=== PATIENT | male | born 1945 | race Caucasian/White ===

== ENCOUNTER → 2017-01-01 | Outpatient (CLI) | payer OTHER ==
[~2017-01-01] MED LIST: CINN1CAP2 PO; IBUP-1050 PO; NAPR1TAB9 PO
[2017-01-01 13:22] LABS: ESTIMATED AVERAGE GLUCOSE 160 mg/dl; HA1C FLAG Normal (Normal)
[2017-01-01 13:39] LABS: BLOOD UREA NITROGEN 15 mg/dl (7-18); CREATININE 0.97 mg/dl (0.60-1.40); GLUCOSE 129 mg/dl (70-99)
[2017-01-01 13:40] LABS: ALT/SGPT 28 U/L (12-78); AST/SGOT 17 U/L (15-37); BUN/CREATININE RATIO 15.2 (10-20); CALCIUM 8.4 mg/dl (8.5-10.1); CARBON DIOXIDE 28 mmol/L (21-32); CHLORIDE 104 mmol/L (98-107); CHOLESTEROL 204 mg/dl (0-200); POTASSIUM 4.1 mmol/L (3.5-5.1); SODIUM 139 mmol/L (136-145); TRIGLYCERIDES 100 mg/dl (0-150); VERY LOW DENSITY LIPOPROT CALC 20 mg/dl
[2017-01-01 13:44] LABS: CHOLESTEROL/HDL RATIO 4.5; HDL CHOLESTEROL 45 mg/dl; LDL CHOLESTEROL CALCULATED 139 mg/dl
[2017-01-01 13:56] LABS: RATIO 127.7 mcg/mg (0-30.0)
== END | disposition home or self-care (01) ==
LOC: C.LABMFLN 11:36
PROVIDERS: ATTEND Internal Medicine
DX: E11.9 Type 2 diabetes mellitus without complications (principal); E78.5 Hyperlipidemia, unspecified; Z12.5 Encounter for screening for malignant neoplasm of prostate

== ENCOUNTER → 2017-05-10 | Outpatient (CLI) | payer OTHER ==
[2017-05-10 13:46] LABS: ALT/SGPT 25 U/L (12-78); BLOOD UREA NITROGEN 16 mg/dl (7-18); BUN/CREATININE RATIO 14.1 (10-20); CARBON DIOXIDE 27 mmol/L (21-32); CHLORIDE 103 mmol/L (98-107); GLUCOSE 207 mg/dl (70-99); POTASSIUM 3.8 mmol/L (3.5-5.1); SODIUM 140 mmol/L (136-145)
[2017-05-10 13:48] LABS: CALCIUM 8.7 mg/dl (8.5-10.1)
[2017-05-10 13:49] LABS: ALB/GLOB RATIO 0.8 (0.9-2); ALKALINE PHOSPHATASE 59 U/L (45-117); AST/SGOT 16 U/L (15-37)
[2017-05-10 13:56] LABS: ESTIMATED AVERAGE GLUCOSE 163 mg/dl; HA1C FLAG Normal (Normal)
== END | disposition home or self-care (01) ==
LOC: C.LABMFLN 10:08
PROVIDERS: ATTEND Internal Medicine
DX: R10.11 Right upper quadrant pain (principal); E11.9 Type 2 diabetes mellitus without complications

== ENCOUNTER → 2017-05-13 | Outpatient (CLI) | payer OTHER ==
--- NOTE | 2017-05-13 08:46 | DIAGNOSTIC IMAGING REPORT ---
ABDOMINAL ULTRASOUND COMPLETE HISTORY: R10.11 Abdominal pain, RUQ (right upper quadrant)[id number]. COMPARISON: None. FINDINGS: Pancreas: Obscured by overlying bowel gas. Liver: The liver is echogenic consistent with fatty change. A 1.9 cm septated cyst within the right hepatic lobe. Gallbladder: No gallbladder wall thickening. No gallstones. CBD: 5 mm. Kidneys: No hydronephrosis. The right kidney measures 11.5 cm. The left kidney measures 11.6 cm. A 6 mm stone within the lower pole the right kidney. Upper pole cysts within the right kidney measuring up to 1.4 cm. There are few stones within the left kidney with the largest in the lower pole measuring 9 mm. There are few simple and septated cyst within the left kidney measuring up to 1.8 cm. Spleen: Normal in size. Aorta: Visualized mid to distal aorta is in caliber. IVC: Patent. IMPRESSION: 1. Mild hepatic steatosis. 2. Normal gallbladder. No gallstones. 3. Hepatic and renal cysts. Some of these contain septations. 4. Bilateral nephrolithiasis. No hydronephrosis. Electronically signed by: Danny Bazzi M.D. 05/13/2017 8:45 AM Dictated Date/Time: 05/13/2017 8:41 AM
== END | disposition home or self-care (01) ==
LOC: C.ULTR 07:58
PROVIDERS: ATTEND Internal Medicine
DX: R10.11 Right upper quadrant pain (principal); K76.0 Fatty (change of) liver, not elsewhere classified; N20.0 Calculus of kidney; N28.1 Cyst of kidney, acquired; K76.89 Other specified diseases of liver

== ENCOUNTER 2017-05-19 19:49 | Emergency (ER) | payer OTHER ==
[~2017-05-19] VITALS: Ht 175.3 cm; Wt 85.7 kg
[2017-05-19 19:52] VITALS: TEMP 36.8; Ht 175.3 cm; Wt 85.7 kg
[2017-05-19] MEDS ORDERED: SODIUM CHLORIDE 0.9% 1000ML 1,000 ML IV STA (19:57)
[2017-05-19] MEDS ORDERED: SODIUM CHLORIDE 0.9% 1000ML 500 ML IV STA (19:57)
[2017-05-19] MEDS ORDERED: CINN1CAP2 PO (20:14)
[2017-05-19] MEDS ORDERED: IBUP-1050 PO (20:14)
[2017-05-19] MEDS ORDERED: NAPR1TAB9 PO (20:14)
--- NOTE | 2017-05-19 20:27 | EMERGENCY ROOM VISIT NOTE ---
History Report prepared by Berry: Sharif John Under the Supervision of: Dr. Deuce Hernandez M.D. First contact with patient: 19:54 Chief Complaint: KIDNEY STONE Stated Complaint: KIDNEY STONES IN BOTH KIDNEYS - PAIN SIZE LEVEL 5 History of Present Illness The patient is a 71 year old male with a history of kidney stones who presents to the Emergency Room with complaints of intermittent right flank pain for the past two months. The patient was diagnosed with kidney stones bilaterally 1 week ago. He denies fevers, cough or congestion, nausea, vomiting, or urinary symptoms. His pain was rated 8 - 9 / 10 this morning, and is currently rated 5 / 10. The patient had Ibuprofen this morning. Pain does not radiate to the testicles. The pain is typically felt at night and goes away in the morning. He came to the ED because the pain did not go away today. The patient follows up with Dr. Browning, who ordered the ultrasound of his kidneys. He is scheduled to see Dr. Neal (Urology) in 9 days. Source of History: patient Onset: two months ago Position: other (right flank) Symptom Intensity: 5/10 Timing: other (persistent) Modifying Factors (Relieving): ibuprofen Associated Symptoms: No fevers, No cough, No nausea, No vomiting, No urinary symptoms Review of Systems See HPI for pertinent positives & negatives. A total of 10 systems reviewed and were otherwise negative. Past Medical & Surgical Surgical Problems: (1) S/P herniorrhaphy Family History No pertinent family history Social History Smoking Status: Never Smoker Marital Status: Housing Status: lives with family Current/Historical Medications Scheduled Cinnamon (Cinnamon), 500 MG PO QPM Scheduled PRN Ibuprofen (Advil), 600 MG PO DAILY PRN for Pain Naproxen (Aleve), 220 MG PO DAILY PRN for Pain Allergies Coded Allergies: BEE STING (Verified Allergy, Severe, PASSED OUT, STOPED HEART, 05/19/17) Physical Exam Vital Signs Date Time Temp Pulse Resp B/P (MAP) Pulse Ox O2 Delivery O2 Flow Rate FiO2 05/19/17 22:08 84 16 142/88 97 05/19/17 19:52 36.8 63 18 158/91 97 Room Air Physical Exam GENERAL: Patient is in no acute distress. HEENT: No acute trauma, normocephalic atraumatic, mucous membranes moist, no nasal congestion, no scleral icterus. NECK: No stridor, no adenopathy, no meningismus, trachea is midline. LUNGS: Clear to auscultation bilaterally, no wheeze, no rhonchi, breath sounds equal. HEART: Without murmurs gallops or rubs, regular rate and rhythm. ABDOMEN: Soft, nontender, bowel sounds positive, no hernias, no peritonitis. BACK: There is no flank discomfort with percussion. EXTREMITIES: No cyanosis or edema, full range of motion of all the joints without pain or difficulty, no signs for acute trauma. NEUROLOGIC: Oriented x 3, no acute motor or sensory deficits, no focal weakness. SKIN: No rash, no jaundice, no diaphoresis. Medical Decision & Procedures ER Provider Diagnostic Interpretation: Radiology results as stated below per my review and radiologist interpretation: CT SCAN OF THE ABDOMEN AND PELVIS WITHOUT CONTRAST CLINICAL HISTORY: Flank pain hematuria COMPARISON STUDY: Abdominal ultrasound dated 05/13/2017 TECHNIQUE: CT scan of the abdomen and pelvis was performed from the lung bases to the proximal femurs. Images are reviewed in the axial, sagittal, and coronal planes. IV contrast was not administered for this examination. CT DOSE: 971.32 mGy.cm FINDINGS: Lower chest: There are bibasal atelectatic changes. There is mild subpleural reticulation. Liver: There is a 2 cm hypodense lesion within the right hepatic lobe, likely are presenting a cyst. Gallbladder: Contracted Spleen: Normal in size and attenuation. Pancreas: Unremarkable. Adrenal glands: There is bilateral adrenal gland thickening suggestive of hyperplasia. Kidneys: There are multiple bilateral renal calculi. There are multiple bilateral renal masses, likely represent cysts. Multiple cysts were described on the recent ultrasound study. These lesions measure up to 17 mm in diameter. No ureteral or bladder calculi are visualized. Bowel: There is extensive sigmoid diverticulosis. There is no acute diverticulitis. There is no evidence of acute appendicitis Peritoneum: There is no intraperitoneal free air or abdominal ascites. There are small fat-containing inguinal hernias. Vasculature: The abdominal aorta is normal in course and caliber. Adenopathy: None. Pelvic viscera: There is mild prominence the prostate and seminal vesicles. Skeletal structures: There are multilevel degenerative changes within the spine IMPRESSION: 1. No evidence of bowel obstruction. No evidence of free air 2. Diverticulosis. No evidence of acute diverticulitis 3. No evidence of acute appendicitis 4. Bilateral nephrolithiasis. No ureteral or bladder calculi identified Electronically signed by: Mathew Barrera M.D. 05/19/2017 8:52 PM Dictated Date/Time: 05/19/2017 8:46 PM Laboratory Results 05/19/17 20:20 Red Blood Count 4.83, Mean Corpuscular Volume 89.0, Mean Corpuscular Hemoglobin 31.9, Mean Corpuscular Hemoglobin Concent 35.8, Mean Platelet Volume 9.8, Neutrophils (%) (Auto) 53.6, Lymphocytes (%) (Auto) 31.6, Monocytes (%) (Auto) 10.8, Eosinophils (%) (Auto) 3.1, Basophils (%) (Auto) 0.6, Neutrophils # (Auto ) 4.97, Lymphocytes # (Auto) 2.94, Monocytes # (Auto) 1.00, Eosinophils # (Auto ) 0.29, Basophils # (Auto) 0.06 05/19/17 20:20 Test 05/19/17 00:00 05/19/17 20:20 Urine Color YELLOW Urine Appearance CLEAR (CLEAR) Urine pH 6.5 (4.5-7.5) Urine Specific [place] 1.018 (1.000-1.030) Urine Protein NEG (NEG) Urine Glucose (UA) NEG (NEG) Urine Ketones NEG (NEG) Urine Occult Blood NEG (NEG) Urine Nitrite NEG (NEG) Urine Bilirubin NEG (NEG) Urine Urobilinogen NEG (NEG) Urine Leukocyte Esterase NEG (NEG) White Blood Count 9.29 K/uL (4.8-10.8) Red Blood Count 4.83 M/uL (4.7-6.1) Hemoglobin 15.4 g/dL (14.0-18.0) Hematocrit 43.0 % (42-52) Mean Corpuscular Volume 89.0 fL (80-100) Mean Corpuscular Hemoglobin 31.9 pg (25-34) Mean Corpuscular Hemoglobin Concent 35.8 g/dl (32-36) Platelet Count 202 K/uL (130-400) Mean Platelet Volume 9.8 fL (7.4-10.4) Neutrophils (%) (Auto) 53.6 % Lymphocytes (%) (Auto) 31.6 % Monocytes (%) (Auto) 10.8 % Eosinophils (%) (Auto) 3.1 % Basophils (%) (Auto) 0.6 % Neutrophils # (Auto) 4.97 K/uL (1.4-6.5) Lymphocytes # (Auto) 2.94 K/uL (1.2-3.4) Monocytes # (Auto) 1.00 K/uL (0.11-0.59) Eosinophils # (Auto) 0.29 K/uL (0-0.5) Basophils # (Auto) 0.06 K/uL (0-0.2) RDW Standard Deviation 42.3 fL (36.4-46.3) RDW Coefficient of Variation 12.9 % (11.5-14.5) Immature Granulocyte % (Auto) 0.3 % Immature Granulocyte # (Auto) 0.03 K/uL (0.00-0.02) Anion Gap 6.0 mmol/L (3-11) Est Creatinine Clear Calc Drug Dose 59.5 ml/min Estimated GFR () 69.1 Estimated GFR (Non- 59.6 BUN/Creatinine Ratio 16.3 (10-20) Calcium Level 8.6 mg/dl (8.5-10.1) Total Bilirubin 0.7 mg/dl (0.2-1) Aspartate Amino Transf (AST/SGOT) 17 U/L (15-37) Alanine Aminotransferase (ALT/SGPT) 26 U/L (12-78) Alkaline Phosphatase 69 U/L (45-117) Total Protein 8.3 gm/dl (6.4-8.2) Albumin 3.8 gm/dl (3.4-5.0) Globulin 4.5 gm/dl (2.5-4.0) Albumin/Globulin Ratio 0.8 (0.9-2) Lipase 186 U/L (73-393) Chemistry Specimen Hemolysis Laboratory results reviewed by me. Medications Administered Medications (Trade) Dose Ordered Sig/Adrienne Route Start Time Stop Time Status Last Admin Dose Admin Sodium Chloride 500 ml @ 999 mls/hr Q31M STAT IV 05/19/17 19:57 05/19/17 20:27 DC 05/19/17 20:29 999 MLS/HR Sodium Chloride 1,000 ml @ 200 mls/hr Q5H STAT IV 05/19/17 19:57 05/19/17 22:42 DC 05/19/17 20:29 200 MLS/HR ED Course 1955: The patient was evaluated in room C4. A complete history and physical exam was performed. 1956: NSS 1000 ml @ 200 mls/hr, NSS 500 ml @ 999 mls/hr. 2133: Reassessed the patient and discussed the workup. He understands and agrees with the discharge instructions. The patient is ready for discharge. Medical Decision Differential diagnosis includes renal colic, pyelonephritis, cholecystitis, pancreatitis, appendicitis, diverticulitis, musculoskeletal pain, hernia. Blood pressure screening: Patient was found to have a slightly elevated blood pressure likely due to circumstances. I do not believe that the patient requires hypertension monitoring. Medication Reconciliation: I attest that I have personally reviewed the patient' s current medication list. There is no leukocytosis or concerning anemia. No significant electrolyte abnormality, kidney failure or hepatitis. There is no pancreatitis. Urinalysis does not show hematuria or infection. On exam, the patient was not febrile, he was not toxic. There was no peritonitis. Abdominal and pelvis CT does not show any ureteral stone, there is no acute infectious process. No bowel obstruction. The patient presents with right flank pain. This has been ongoing for some time. The pain does worsen he states with certain movements. The pain may truly be musculoskeletal. The patient did receive IV saline during his stay, he did not require anything for pain. He is being discharged with close outpatient follow-up. Impression Primary Impression: Right flank pain Scribe Attestation The scribe's documentation has been prepared under my direction and personally reviewed by me in its entirety. I confirm that the note above accurately reflects all work, treatment, procedures, and medical decision making performed by me. Departure Information Dispostion Home / Self-Care Referrals Brock Browning M.D. (PCP) Forms HOME CARE DOCUMENTATION FORM, IMPORTANT VISIT INFORMATION Patient Instructions My [facility] [employer] [place] Additional Instructions motrin or aleve for pain may also use tylenol heat should help see your doctor as scheduled return for fever, vomiting or uncontrolled pain testing today was ok as we discussed
[2017-05-19 20:32] LABS: BASO % 0.6 %; BASO ABS # 0.06 K/uL (0-0.2); COMPLETE YES; EOS % 3.1 %; IG% 0.3 %; LYMPH % 31.6 %; LYMPH ABS # 2.94 K/uL (1.2-3.4); MEAN CORPUSCULAR HEMOGLOBIN 31.9 pg (25-34); MEAN CORPUSCULAR HGB CONC 35.8 g/dl (32-36); MEAN PLATELET VOLUME 9.8 fL (7.4-10.4); MONO % 10.8 %; NEUT % 53.6 %; PLATELET COUNT 202 K/uL (130-400); RED BLOOD COUNT 4.83 M/uL (4.7-6.1); WHITE BLOOD COUNT 9.29 K/uL (4.8-10.8)
[2017-05-19 20:37] LABS: URINE APPEARANCE CLEAR (CLEAR); URINE BILIRUBIN NEG (NEG); URINE COLOR YELLOW; URINE NITRITE NEG (NEG); URINE PH 6.5 (4.5-7.5); URINE SPECIFIC GRAVITY 1.018 (1.000-1.030); UROBILINOGEN NEG (NEG); ZZUR CULT IF INDIC CLEAN CATCH NO
[2017-05-19 20:50] LABS: MANUAL MICROSCOPIC REQUIRED? NO; REVIEW REQ? NO
--- NOTE | 2017-05-19 20:53 | DIAGNOSTIC IMAGING REPORT ---
CT SCAN OF THE ABDOMEN AND PELVIS WITHOUT CONTRAST CLINICAL HISTORY: Flank pain hematuria COMPARISON STUDY: Abdominal ultrasound dated 05/13/2017 TECHNIQUE: CT scan of the abdomen and pelvis was performed from the lung bases to the proximal femurs. Images are reviewed in the axial, sagittal, and coronal planes. IV contrast was not administered for this examination. CT DOSE: 971.32 mGy.cm FINDINGS: Lower chest: There are bibasal atelectatic changes. There is mild subpleural reticulation. Liver: There is a 2 cm hypodense lesion within the right hepatic lobe, likely are presenting a cyst. Gallbladder: Contracted Spleen: Normal in size and attenuation. Pancreas: Unremarkable. Adrenal glands: There is bilateral adrenal gland thickening suggestive of hyperplasia. Kidneys: There are multiple bilateral renal calculi. There are multiple bilateral renal masses, likely represent cysts. Multiple cysts were described on the recent ultrasound study. These lesions measure up to 17 mm in diameter. No ureteral or bladder calculi are visualized. Bowel: There is extensive sigmoid diverticulosis. There is no acute diverticulitis. There is no evidence of acute appendicitis Peritoneum: There is no intraperitoneal free air or abdominal ascites. There are small fat-containing inguinal hernias. Vasculature: The abdominal aorta is normal in course and caliber. Adenopathy: None. Pelvic viscera: There is mild prominence the prostate and seminal vesicles. Skeletal structures: There are multilevel degenerative changes within the spine IMPRESSION: 1. No evidence of bowel obstruction. No evidence of free air 2. Diverticulosis. No evidence of acute diverticulitis 3. No evidence of acute appendicitis 4. Bilateral nephrolithiasis. No ureteral or bladder calculi identified Electronically signed by: Mathew Barrera M.D. 05/19/2017 8:52 PM Dictated Date/Time: 05/19/2017 8:46 PM
[2017-05-19 21:02] LABS: ALB/GLOB RATIO 0.8 (0.9-2); BUN/CREATININE RATIO 16.3 (10-20); CALCIUM 8.6 mg/dl (8.5-10.1); CREATININE 1.2 mg/dl (0.60-1.40); POTASSIUM 3.9 mmol/L (3.5-5.1)
[2017-05-19 22:08] VITALS: BP 142/88; PULSE 84; O2SAT 97
== END 2017-05-19 22:10 | disposition home or self-care (01) ==
LOC: C.EDB 19:50 → C.EDC 22:10
DX: N20.0 Calculus of kidney (principal); K57.30 Diverticulosis of large intestine without perforation or abscess without bleeding; R10.9 Unspecified abdominal pain

== ENCOUNTER → 2017-12-24 | Outpatient (CLI) | payer OTHER ==
[2017-12-24 14:00] LABS: ALT/SGPT 29 U/L (12-78); AST/SGOT 12 U/L (15-37); BLOOD UREA NITROGEN 17 mg/dl (7-18); CALCIUM 8.7 mg/dl (8.5-10.1); CARBON DIOXIDE 31 mmol/L (21-32); CREATININE 1.03 mg/dl (0.60-1.40); GLUCOSE 226 mg/dl (70-99); POTASSIUM 4.1 mmol/L (3.5-5.1); SODIUM 137 mmol/L (136-145)
[2017-12-24 14:02] LABS: CHOLESTEROL 194 mg/dl (0-200); LDL CHOLESTEROL CALCULATED 129 mg/dl
== END | disposition home or self-care (01) ==
LOC: C.LABMFLN 08:04
PROVIDERS: ATTEND Internal Medicine
DX: E11.9 Type 2 diabetes mellitus without complications (principal)

== ENCOUNTER 2021-12-01 14:45 | Inpatient (IN) ==
--- NOTE | 2021-12-01 16:14 | Emergency Department Note ---
Impression & Plan Pneumonia due to 2019-nCoV, Hypoxia, Acute hyponatremia, Leukopenia ED Provider Note NAME: SARA MELVIN AGE: 76 SEX: M : 1945 ARRIVES VIA: Walk-In INFORMANT: Patient ED PROVIDER(S): Ike Winston DO CHIEF COMPLAINT: Shortness of breath HPI: Patient is a 76-year-old male who is unvaccinated that presents to the ER for feeling weak which started around November 23. He admits to cough and congestion. No loss of taste or smell. He has had some intermittent fevers. He denies any shortness of breath. He does have some chest pain with coughing. No belly pain, nausea, vomiting, or diarrhea. No dysuria, urgency, or frequency. Both daughter and are sick with Covid and currently recovering. He was referred in by his PCP as on his home pulse oximeter it was in the mid 80s. ROS: See above HPI for pertinent positives & negatives. A total of 10 systems reviewed and were otherwise negative. PAST MEDICAL HISTORY:See Below PAST SURGICAL HISTORY:See Below FAMILY HISTORY:See Below SOCIAL HISTORY:See Below HOME MEDICATIONS:See Below ALLERGIES:See Below VITALS:See Below PHYSICAL EXAMINATION: GENERAL: Sitting up in bed, alert, well appearing, well nourished, no distress, non-toxic EYE EXAM: normal conjunctiva. PERRL and EOM's grossly intact. OROPHARYNX: no exudate, no erythema, lips, buccal mucosa, and tongue normal and mucous membranes are moist NECK: supple, no nuchal rigidity, no adenopathy, non-tender LUNGS: Clear to auscultation. Normal chest wall mechanics HEART: no murmurs, S1 normal and S2 normal ABDOMEN: abdomen soft, non-tender, normo-active bowel sounds, no masses, no rebound or guarding. UPPER EXTREMITIES: upper extremities are grossly normal. LOWER EXTREMITIES: No pitting edema. Calves are equal bilateral NEURO EXAM: Normal sensorium, cranial nerves II-XII grossly intact, normal speech, no gross weakness of arms, no gross weakness of legs. MEDICAL DECISION MAKING: Patient is a 76-year-old male who presents ER with upper respiratory symptoms. IV was established blood work is obtained. Labs show leukopenia 4000. No significant anemia. Mild hyponatremia 132. LFTs bilirubin and troponin was negative. Patient was Covid positive. Lipase was normal. Chest x-ray with bilateral infiltrates. He was given IV fluids and Decadron. Pulse ox dropped to 84% with minimal walking. He was discussed with hospitalist and admitted for further work-up of Covid pneumonia and hypoxia. Triage Nursing notes reviewed. Limited review of prior medical records performed Vital Signs: reviewed and remarkable for no significant abnormalities Differential diagnosis: Differential diagnoses includes but is not limited to pneumonia, bronchitis, COPD/Asthma exacerbation, pneumothorax, pulmonary embolism, congestive heart failure, acute coronary syndrome ER treatment provided: See below Diagnostics interpreted by me: ECG: Sinus rhythm rate 76 Normal axis No PVCs QTC 441 Cardiac Monitoring: An order was placed for continuous cardiac monitoring. The monitor shows a rate of 80 with sinus rhythm. Laboratory studies: As stated above and show below. Imaging studies: Portable AP upright 1 view of the chest shows bilateral infiltrates Consultation(s): Discussed the hospitalist for further evaluation Procedures: none Critical Care: None Past Med/Surg History Medical History Dyslipidemia Enlarged prostate Hypertension Kidney stones PASSED ON OWN Lumbosacral radiculopathy at L5 Type 2 diabetes mellitus Hgb A1C 6.5 on 04/21/21 Surgical History History of anesthesia reaction DISORIENTATION POST OP X 1-2 WEEKS AFTER CYSTOSCOPY SX [facility] History of cystoscopy WITH STENT History of hernia repair S/P tonsillectomy Family History Father Pancreatic malignant neoplasm Malignant Pancreatic Neoplasm Mother Dementia Diabetes Denies family history of Colon cancer Ovarian cancer Prostate cancer Myocardial infarction Breast cancer Social History (Updated 11/26/21 @ 10:06 by Fiorella Guerin RN) Smoking Status: Never smoker Second Hand Exposure: No; Hx Alcohol Use: No Hx Substance Use: No Preferred Language: Libyan Communication Ability: Effective 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 Beliefs That Will Affect Care: None marital status: Current Living Situation: Spouse and Family Current Living Situation Comment: PT LIVES WITH SPOUSE, DAUGHTER current occupational status: retired Feels Safe at Home: Yes Childhood Exposure to Second-Hand Smoke: No Dental Care, Regularly: Yes Physical Activity Frequency: Daily Seatbelt Use: always Sunscreen Use: No Assistive Devices: Denture - Upper and Glasses Allergies Allergies Allergy/AdvReac Type Severity Reaction Status Date / Time bee venom protein (honey bee) Allergy Severe PASSED Verified 12/01/21 18:16 OUT, STOPPED HEART amoxicillin Allergy Mild Unknown Verified 12/01/21 18:16 Home Meds Home Medications Medication Instructions Recorded Confirmed cholecalciferol (vitamin D3) 50 50 mcg PO QAM 09/05/21 12/01/21 mcg (2,000 unit) tablet (Vitamin D3) glimepiride 2 mg tablet 1 mg PO BID 09/05/21 12/01/21 lisinopril 2.5 mg tablet 2.5 mg PO QAM 09/05/21 12/01/21 multivitamin 1 tab PO QAM 09/05/21 12/01/21 naproxen sodium 220 mg capsule 220 mg PO BID PRN 09/05/21 12/01/21 (Aleve) tamsulosin 0.4 mg capsule 0.4 mg PO HS 09/05/21 12/01/21 ascorbic acid (vitamin C) 500 mg 500 mg PO QAM 11/26/21 12/01/21 tablet (Vitamin C) Previous Rx's Medication Instructions Recorded epinephrine 0.3 mg/0.3 mL 0.3 mg SUBCUT .COMPLEX #1 ea 05/03/20 injection, auto-injector azithromycin 250 mg tablet See Rx Instructions PO .COMPLEX #6 12/01/21 (Zithromax Z-Zeferino) tab Results & Data (ED) Vital Signs Vital Signs - 24 hr 12/01/21 15:35 12/01/21 17:32 12/01/21 17:49 Temperature 36.6 C Temperature Source Temporal Artery Scan Pulse Rate 68 78 Pulse Rate [Apical] Respiratory Rate 22 22 Respiratory Effort / Characteristics Non-Labored Spontaneous Respiratory Depth Respiratory Pattern Regular Blood Pressure 126/55 L Blood Pressure [Right Arm] Blood Pressure Mean 78 Blood Pressure Mean [Right Arm] Pulse Oximetry 93 90 Oxygen Delivery Method Room Air Room Air Room Air Sepsis Recent Fever Within 48 Hours Yes Sepsis New/Unexplained Change in Mental Status No Sepsis Action Taken by Nursing No Action Required 12/01/21 17:58 Temperature Temperature Source Pulse Rate Pulse Rate [Apical] 80 Respiratory Rate 20 Respiratory Effort / Characteristics Non-Labored Spontaneous Respiratory Depth Normal Respiratory Pattern Regular Blood Pressure Blood Pressure [Right Arm] 123/53 L Blood Pressure Mean Blood Pressure Mean [Right Arm] 76 Pulse Oximetry 91 Oxygen Delivery Method Room Air Sepsis Recent Fever Within 48 Hours Sepsis New/Unexplained Change in Mental Status Sepsis Action Taken by Nursing Laboratory Data Result diagrams: 12/01/21 16:15 12/01/21 16:15 Lab Results 12/01/21 12/01/21 12/01/21 Range/Units 16:15 16:15 16:15 WBC 4.21 L (4.8-10.8) K/uL RBC 4.63 L (4.7-6.1) M/uL Hgb 14.2 (14.0-18.0) g/dL Hct 40.8 L (42-52) % MCV 88.1 (80-100) fL MCH 30.7 (25-34) pg MCHC 34.8 (32-36) g/dL RDW Std Deviation 43.3 (36.4-46.3) fL RDW Coeff of [place] 13.4 (11.5-14.5) % Plt Count 139 (130-400) K/uL MPV 9.7 (7.4-10.4) fL Immature Gran % (Auto) 0.7 % Neut % (Auto) 61.3 % Lymph % (Auto) 21.6 % [place] % (Auto) 15.7 % Eos % (Auto) 0.2 % Baso % (Auto) 0.5 % Neut # (Auto) 2.58 (1.4-6.5) K/uL Lymph # (Auto) 0.91 L (1.2-3.4) K/uL [place] # (Auto) 0.66 H (0.11-0.59) K/uL Eos # (Auto) 0.01 (0-0.5) K/uL Baso # (Auto) 0.02 (0-0.2) K/uL Immature Gran # (Auto) 0.03 H (0.00-0.02) K/uL RBC Morphology Unremarkable Sodium 132 L (136-145) mmol/L Potassium 3.7 (3.5-5.1) mmol/L Chloride 100 (98-107) mmol/L Carbon Dioxide 27 (21-32) mmol/L Anion Gap 5.0 (3-11) BUN 14 (7-18) mg/dl Creatinine 1.02 (0.6-1.4) mg/dl Est Cr Clr Drug Dosing Not Reportable Est GFR ( Amer) 81.2 ml/min Est GFR (Non-Af Amer) 70.1 ml/min BUN/Creatinine Ratio 14.0 (10-20) Glucose 148 H (70-99) mg/dl Calcium 8.5 (8.5-10.1) mg/dl Total Bilirubin 0.8 (0.2-1) mg/dl AST 69 H (15-37) U/L ALT 36 (12-78) Alkaline Phosphatase 46 (45-117) U/L Troponin I < 0.015 (0-0.045) ng/ml Total Protein 7.9 (6.4-8.2) gm/dl Albumin 3.2 L (3.4-5.0) gm/dl Globulin 4.7 H (2.5-4.0) gm/dl Albumin/Globulin Ratio 0.7 L (0.9-2) Lipase 347 (73-393) U/L SARS-CoV-2, RNA, NAAT POSITIVE A* (NEGATIVE) Administered Medications Dexamethasone 6 mg/ Syringe 1.5 mls @ 1 mls/min IV Q24H RUBIN Stop: 12/31/21 17:44 Last Admin: 12/01/21 18:06 Dose: 1 mls/min Documented by: [id number] Discontinued Medications Dexamethasone (Dexamethasone Sod Inj 4 Mg/Ml Vial) Confirm Administered Dose 8 mg .ROUTE .STK-MED ONE Stop: 12/01/21 18:06 Last Admin: 12/01/21 18:06 Dose: Not Given Documented by: [id number] Sodium Chloride (Nss 1000ml) 500 mls @ 999 mls/hr IV .Q31M ONE Stop: 12/01/21 18:05 Last Infusion: 12/01/21 18:53 Dose: 0 mls/hr Documented by: [id number] Admin: 12/01/21 18:03 Dose: 999 mls/hr Documented by: [id number] Remdesivir 200 mg/ Sodium (Chloride) 250 mls @ 125 mls/hr IV ONE STA; Protocol Stop: 12/01/21 21:55 Last Admin: 12/01/21 21:51 Dose: 125 mls/hr Documented by: [id number] Imaging Data Radiologist's Impression: Chest X-Ray 12/01/21 16:10 SINGLE VIEW CHEST CLINICAL HISTORY: Cough and dyspnea. Atypical chest pain FINDINGS: An AP, portable, upright chest radiograph is compared to study dated 09/11/2021. The heart is enlarged noting atherosclerotic calcification of the thoracic aorta. There is pulmonary vascular congestion. Diffuse airspace opacities are seen throughout both lungs. Suspect trace pleural effusions. No pneumothorax is seen. The skeletal structures are osteopenic. The bony thorax is grossly intact. IMPRESSION: 1. Cardiomegaly with pulmonary vascular congestion. 2. Diffuse airspace opacities are seen throughout both lungs. This could represent pulmonary edema and/or an infectious/inflammatory pneumonitis. Clinical correlation will be required and radiographic follow-up to resolution is recommended. 3. Suspect small pleural effusions ACT 112: Negative or not required by law. Electronically signed by: Deuce Bailey M.D. 12/01/2021 5:01 PM Discharge Plan Visit Data Chief Complaint: Referred by Doctor Stated Complaint: FEVER, LOW O2-REFERRED BY PCP ED Provider: Ike Winston Discharge Problem: Pneumonia due to 2019-nCoV, Hypoxia, Acute hyponatremia, Leukopenia Discharge Problem: Leukopenia Qualifiers: Leukopenia type: unspecified Qualified Code(s): D72.819 - Decreased white blood cell count, unspecified
[2021-12-01 16:29] LABS: Hematocrit (blood only) 40.8 % (42-52); Hemoglobin 14.2 g/dL (14.0-18.0); Mean Corpuscular Hemoglobin 30.7 pg (25-34); Mean Corpuscular Hgb Conc 34.8 g/dL (32-36); Mean Corpuscular Volume 88.1 fL (80-100); Mean Platelet Volume 9.7 fL (7.4-10.4); Platelet Count 139 K/uL (130-400); RDW Coefficient of Variation 13.4 % (11.5-14.5); RDW Standard Deviation 43.3 fL (36.4-46.3); Red Blood Count 4.63 M/uL (4.7-6.1); White Blood Count 4.21 K/uL (4.8-10.8)
[2021-12-01 16:47] LABS: Alanine Aminotransferase 36 (12-78); Albumin Level 3.2 gm/dl (3.4-5.0); Aspartate Aminotransferase 69 U/L (15-37); Blood Urea Nitrogen 14 mg/dl (7-18); Calcium 8.5 mg/dl (8.5-10.1); Carbon Dioxide 27 mmol/L (21-32); Chloride 100 mmol/L (98-107); Est GFR (African American) 81.2 ml/min; Est GFR (Non-African American) 70.1 ml/min; Glucose 148 mg/dl (70-99); Lipase 347 U/L (73-393); Potassium 3.7 mmol/L (3.5-5.1); Sodium 132 mmol/L (136-145)
[2021-12-01 16:52] LABS: Albumin Globulin Ratio 0.7 (0.9-2); Alkaline Phosphatase 46 U/L (45-117); Bilirubin,Total 0.8 mg/dl (0.2-1); Globulin 4.7 gm/dl (2.5-4.0); Total Protein 7.9 gm/dl (6.4-8.2); Troponin I < 0.015 ng/ml (0-0.045)
[2021-12-01 16:55] LABS: Basophils # (auto) 0.02 K/uL (0-0.2); Basophils % (auto) 0.5 %; Eosinophils # (auto) 0.01 K/uL (0-0.5); Eosinophils % (auto) 0.2 %; Immature Granulocytes # (auto) 0.03 K/uL (0.00-0.02); Immature Granulocytes % (auto) 0.7 %; Lymphocytes # (auto) 0.91 K/uL (1.2-3.4); Lymphocytes % (auto) 21.6 %; Monocytes # (auto) 0.66 K/uL (0.11-0.59); Monocytes % (auto) 15.7 %; Neutrophils # (auto) 2.58 K/uL (1.4-6.5); Neutrophils % (auto) 61.3 %; RBC Morphology Unremarkable
--- NOTE | 2021-12-01 17:02 | XRay Report ---
SINGLE VIEW CHEST CLINICAL HISTORY: Cough and dyspnea. Atypical chest pain FINDINGS: An AP, portable, upright chest radiograph is compared to study dated 09/11/2021. The heart is enlarged noting atherosclerotic calcification of the thoracic aorta. There is pulmonary vascular c ongestion. Diffuse airspace opacities are seen throughout both lungs. Suspect trace pleural effusions . No pneumothorax is seen. The skeletal structures are osteopenic. The bony thorax is grossly intact. IMPRESSION: 1. Cardiomegaly with pulmonary vascular congestion. 2. Diffuse airspace opacities are seen throughout both lungs. This could represent pulmonary edema an d/or an infectious/inflammatory pneumonitis. Clinical correlation will be required and radiographic f ollow-up to resolution is recommended. 3. Suspect small pleural effusions ACT 112: Negative or not required by law. Electronically signed by: Deuce Bailey M.D. 12/01/2021 5:01 PM
[2021-12-01] MEDS ORDERED: SODIUM CHLORIDE 0.9% 1000ML 500 ML IV ONE (17:35)
[2021-12-01] MEDS ORDERED: dexAMETHasone 6 MG in SYRINGE 0 ML IV SCH (17:45)
[2021-12-01] MEDS ORDERED: DEXAMETHASONE SOD INJ 4 MG/ML VIAL ONE (18:05)
[2021-12-01] MEDS ORDERED: REMDESIVIR 200 MG in SODIUM CHLORIDE 0.9% 210 ML IV STA (19:56)
--- NOTE | 2021-12-01 19:56 | History & Physical Report ---
Date of Service December 01, 2021 Assessment & Plan (1) Pneumonia due to 2019-nCoV: Plan: 76yo male with history of DM, GERD presenting with Covid-19 PNA and hypoxia. Patient is unvaccinated against Covid. He is on day 8 of illness. Labs are significant for lymphopenia with leukopenia as well as mild hyponatremia with Sw=236. Elevated inflammatory markers to include CRP of 9.05 as well as Ferritin of 1498.3. Procalcitonin is negative and BNP is within normal range. CXR is significant for bilateral airspace opacities. Patient presently saturating well on 2L NC with no respiratory distress. -Admit to medical -Maintain isolation precautions -Dexamethasone 6mg IV daily -Remdesivir 200mg IV x 1 then 100mg IV daily x 4 days -Lovenox 40mg BID -Continue home Vitamin D supplementation -Supplemental O2 as needed -Tylenol as needed for fever (2) Type 2 diabetes mellitus: Plan: Patient with well controlled Type II DM, last HgbA1C from 11/17/21 = 6.4. Blood sugar presently 148. Patient with microalbuminuria. -Hold Glimepiride -Lantus 5u BID with ISS, goal blood sugar 100 - 140 -Continue Lisinopril 2.5mg po daily (3) BPH w urinary obs/LUTS: Plan: Chronic. Patient urinating without difficulty -Continue Flomax 0.4mg po daily Plan: F/E/N - Heplock. Mildly low PO4 at 2.4, NeutraPhos supplementation x 1 day, CC diet as tolerated Ppx - Lovenox 40 BID Code - DNR/DNI per discussion with patient Dispo - Admit to medical History of Present Illness Chief Complaint: Covid-19 Primary Care Provider: Brock Browning MD Genaro Sparrow is a 76yo male with history of HTN, DM and renal stones presenting with Covid-19, ambulatory hypoxemia. Patient reports becoming ill on November 23 with profound weakness and fatigue. He also reports episodes of confusion - having difficulty balancing his checkbook and some forgetfulness around the home. He has had some mild cough and congestion as well as intermittent fevers. He had some mild diarrhea. Patient denies SOB, chest discomfort, although he does have some chest pain associated with coughing. No additional complaints at this time. Patient is not vaccinated against Covid-19. His daughter and are presently ill with Covid as well. Patient has been monitoring his pulse ox at home and has been in the 80's. In the ER his saturations were 90% on room air and decreased to low 80's with ambulation. He is presently on 2L by [place] and saturating 95% No additional complaints at this time. ER Course: Dexamethasone 6mg IV, NSS x 500mL, Remdesivir 200mg Allergies Allergy/AdvReac Type Severity Reaction Status Date / Time bee venom protein (honey bee) Allergy Severe PASSED Verified 12/01/21 18:16 OUT, STOPPED HEART amoxicillin Allergy Mild Unknown Verified 12/01/21 18:16 Home Medications Medication Instructions Recorded Confirmed Type epinephrine 0.3 mg/0.3 mL 0.3 mg SUBCUT .COMPLEX #1 ea 05/03/20 12/01/21 Rx injection, auto-injector cholecalciferol (vitamin D3) 50 50 mcg PO QAM 09/05/21 12/01/21 History mcg (2,000 unit) tablet (Vitamin D3) glimepiride 2 mg tablet 1 mg PO BID 09/05/21 12/01/21 History lisinopril 2.5 mg tablet 2.5 mg PO QAM 09/05/21 12/01/21 History multivitamin 1 tab PO QAM 09/05/21 12/01/21 History naproxen sodium 220 mg capsule 220 mg PO BID PRN 09/05/21 12/01/21 History (Aleve) tamsulosin 0.4 mg capsule 0.4 mg PO HS 09/05/21 12/01/21 History ascorbic acid (vitamin C) 500 mg 500 mg PO QAM 11/26/21 12/01/21 History tablet (Vitamin C) azithromycin 250 mg tablet See Rx Instructions PO .COMPLEX #6 12/01/21 12/01/21 Rx (Zithromax Z-Zeferino) tab Past Med/Surg History Medical History Dyslipidemia Enlarged prostate Hypertension Kidney stones PASSED ON OWN Lumbosacral radiculopathy at L5 Type 2 diabetes mellitus Hgb A1C 6.5 on 04/21/21 Surgical History History of anesthesia reaction DISORIENTATION POST OP X 1-2 WEEKS AFTER CYSTOSCOPY SX [facility] History of cystoscopy WITH STENT History of hernia repair S/P tonsillectomy Family History Father Pancreatic malignant neoplasm Malignant Pancreatic Neoplasm Mother Dementia Diabetes Denies family history of Colon cancer Ovarian cancer Prostate cancer Myocardial infarction Breast cancer Social History (Updated 11/26/21 @ 10:06 by Fiorella Guerin RN) Smoking Status: Never smoker Second Hand Exposure: No; Hx Alcohol Use: No Hx Substance Use: No Preferred Language: Kosovan Communication Ability: Effective Computer Analyst Required: No Beliefs That Will Affect Care: None marital status: Current Living Situation: Spouse and Family Current Living Situation Comment: PT LIVES WITH SPOUSE, DAUGHTER current occupational status: retired Feels Safe at Home: Yes Childhood Exposure to Second-Hand Smoke: No Dental Care, Regularly: Yes Physical Activity Frequency: Daily Seatbelt Use: always Sunscreen Use: No Assistive Devices: Denture - Upper and Glasses Review of Systems Review of Systems: All systems reviewed & are unremarkable except as noted in HPI & below Physical Exam Physical Exam: General: patient resting comfortably, NAD, non-toxic in appearance, AA&O x 4 Skin: warm, dry, intact, no rashes or lesions HEENT: NC/AT, PERRL, EOMI, anicteric sclera, conjunctiva without injection, external ear normal to inspection and nontender, nares patent, moist mucus membranes, dentition intact, no oropharyngeal lesions, neck supple, trachea midline, no LAD, no thyromegaly, no JVD Heart: +S1/S2, regular, no m/r/g Lungs: equal air entry bilaterally, no rales/rhonchi/wheezes Abd: +BS, soft, NT/ND, no masses/organomegaly/ascites Ext: warm, 2+ pulses in UE/LE bilaterally, no clubbing/cyanosis or edema Neuro: nonfocal, patient AA&O x 4, speech intact, no facial droop, moving all extremities on command with equal strength 5/5 Results & Data Results & Data ([facility]) Vital Signs (Past 12 Hours) Vital Signs Temp Pulse Pulse Resp BP BP Pulse Ox 12/01/21 17:58 80 20 123/53 L 91 12/01/21 17:49 78 22 90 12/01/21 15:35 36.6 C 68 22 126/55 L 93 Laboratory Results Laboratory Results WBC 4.21 K/uL (4.8-10.8) L 12/01/21 16:15 RBC 4.63 M/uL (4.7-6.1) L 12/01/21 16:15 Hgb 14.2 g/dL (14.0-18.0) 12/01/21 16:15 Hct 40.8 % (42-52) L 12/01/21 16:15 MCV 88.1 fL (80-100) 12/01/21 16:15 MCH 30.7 pg (25-34) 12/01/21 16:15 MCHC 34.8 g/dL (32-36) 12/01/21 16:15 RDW Std Deviation 43.3 fL (36.4-46.3) 12/01/21 16:15 RDW Coeff of Oliva 13.4 % (11.5-14.5) 12/01/21 16:15 Plt Count 139 K/uL (130-400) 12/01/21 16:15 MPV 9.7 fL (7.4-10.4) 12/01/21 16:15 Immature Gran % (Auto) 0.7 % 12/01/21 16:15 Neut % (Auto) 61.3 % 12/01/21 16:15 Lymph % (Auto) 21.6 % 12/01/21 16:15 [place] % (Auto) 15.7 % 12/01/21 16:15 Eos % (Auto) 0.2 % 12/01/21 16:15 Baso % (Auto) 0.5 % 12/01/21 16:15 Neut # (Auto) 2.58 K/uL (1.4-6.5) 12/01/21 16:15 Lymph # (Auto) 0.91 K/uL (1.2-3.4) L 12/01/21 16:15 [place] # (Auto) 0.66 K/uL (0.11-0.59) H 12/01/21 16:15 Eos # (Auto) 0.01 K/uL (0-0.5) 12/01/21 16:15 Baso # (Auto) 0.02 K/uL (0-0.2) 12/01/21 16:15 Immature Gran # (Auto) 0.03 K/uL (0.00-0.02) H 12/01/21 16:15 RBC Morphology Unremarkable 12/01/21 16:15 Sodium 132 mmol/L (136-145) L 12/01/21 16:15 Potassium 3.7 mmol/L (3.5-5.1) 12/01/21 16:15 Chloride 100 mmol/L (98-107) 12/01/21 16:15 Carbon Dioxide 27 mmol/L (21-32) 12/01/21 16:15 Anion Gap 5.0 (3-11) 12/01/21 16:15 BUN 14 mg/dl (7-18) 12/01/21 16:15 Creatinine 1.02 mg/dl (0.6-1.4) 12/01/21 16:15 Est Cr Clr Drug Dosing Not Reportable 12/01/21 16:15 Est GFR ( Amer) 81.2 ml/min 12/01/21 16:15 Est GFR (Non-Af Amer) 70.1 ml/min 12/01/21 16:15 BUN/Creatinine Ratio 14.0 (10-20) 12/01/21 16:15 Glucose 148 mg/dl (70-99) H 12/01/21 16:15 Calcium 8.5 mg/dl (8.5-10.1) 12/01/21 16:15 Total Bilirubin 0.8 mg/dl (0.2-1) 12/01/21 16:15 AST 69 U/L (15-37) H 12/01/21 16:15 ALT 36 (12-78) 12/01/21 16:15 Alkaline Phosphatase 46 U/L (45-117) 12/01/21 16:15 Troponin I < 0.015 ng/ml (0-0.045) 12/01/21 16:15 Total Protein 7.9 gm/dl (6.4-8.2) 12/01/21 16:15 Albumin 3.2 gm/dl (3.4-5.0) L 12/01/21 16:15 Globulin 4.7 gm/dl (2.5-4.0) H 12/01/21 16:15 Albumin/Globulin Ratio 0.7 (0.9-2) L 12/01/21 16:15 Lipase 347 U/L (73-393) 12/01/21 16:15 SARS-CoV-2, RNA, NAAT POSITIVE (NEGATIVE) A* 12/01/21 16:15 Impressions Chest X-Ray 12/01/21 16:10 SINGLE VIEW CHEST CLINICAL HISTORY: Cough and dyspnea. Atypical chest pain FINDINGS: An AP, portable, upright chest radiograph is compared to study dated 09/11/2021. The heart is enlarged noting atherosclerotic calcification of the thoracic aorta. There is pulmonary vascular congestion. Diffuse airspace opacities are seen throughout both lungs. Suspect trace pleural effusions. No pneumothorax is seen. The skeletal structures are osteopenic. The bony thorax is grossly intact. IMPRESSION: 1. Cardiomegaly with pulmonary vascular congestion. 2. Diffuse airspace opacities are seen throughout both lungs. This could r epresent pulmonary edema and/or an infectious/inflammatory pneumonitis. Clinical correlation will be required and radiographic follow-up to resolution is recommended. 3. Suspect small pleural effusions ACT 112: Negative or not required by law. Electronically signed by: Deuce Bailey M.D. 12/01/2021 5:01 PM ECG Additional Comments: By my interpretation EKG with NSR at 76, normal axis, TG=090, QRS=94, MJg=569, no acute ischemic changes Code Status & VTE Plan VTE Prophylaxis Plan VTE Prophylaxis will be ordered: Yes PG Care Time/CCT Total # of Minutes Spent Total Time Spent with Patient: Total time spent is greater than 50% in coordination of care (as documented) at patient's floor/unit and/or counseling patient: Coding Level of Care Code 60677 Initial Inpt Care Lvl 2 Diagnoses Pneumonia due to 2019-nCoV U07.1; J12.82 Type 2 diabetes mellitus E11.9 BPH w urinary obs/LUTS N40.1; N13.8
[2021-12-01] MEDS ORDERED: GLUCAGON FOR INJ 1 MG VIAL SQ PRN (22:34)
[2021-12-01] MEDS ORDERED: GLUCOSE 40% GEL 15 GM TUBE PO PRN (22:34)
[2021-12-01] MEDS ORDERED: DEXTROSE 50% 50 ML SYRINGE IV PRN (22:34)
[2021-12-01] MEDS ORDERED: CARBOHYDRATES FOR HYPOGLYCEMIA PO PRN (22:34)
[2021-12-01] MEDS ORDERED: GLUCOSE 10 TABS/TUBE PO PRN (22:34)
[2021-12-01] MEDS ORDERED: PATIENT'S HEIGHT AND/OR WEIGHT NEEDED SCH (22:45)
[2021-12-01 23:26] LABS: C Reactive Protein 9.05 mg/dl (0-0.29); Ferritin 1498.3 ng/ml (8-388); Magnesium 2.1 mg/dl (1.8-2.4); NT Pro B Type Natriuretic Pept 195 pg/ml (0-1800); Phosphorus 2.4 mg/dl (2.5-4.9)
[2021-12-01] MEDS: INSULIN GLARGINE SOLOSTAR 100 UNITS/ML 3 ML PEN SC SCH (23:35)
[2021-12-01] MEDS: INSULIN ASPART PER UNIT SC SCH (23:35)
[2021-12-02] MEDS: TAMSULOSIN HCL 0.4 MG CAP PO SCH ×2 (00:14→20:04)
[2021-12-02] MEDS: SODIUM CHLORIDE 0.9% 10ML FLUSH IV SCH ×2 (00:16→21:08)
[2021-12-02] MEDS: ENOXAPARIN INJ 40 MG/0.4 ML SYR SQ SCH ×3 (01:06→20:04)
[2021-12-02 05:44] LABS: Hematocrit (blood only) 38.6 % (42-52); Hemoglobin 13.3 g/dL (14.0-18.0); Immature Granulocytes # (auto) 0.03 K/uL (0.00-0.02); Immature Granulocytes % (auto) 0.8 %; Lymphocytes # (auto) 0.73 K/uL (1.2-3.4); Lymphocytes % (auto) 19.4 %; Mean Corpuscular Hemoglobin 30.4 pg (25-34); Mean Corpuscular Hgb Conc 34.5 g/dL (32-36); Mean Corpuscular Volume 88.1 fL (80-100); Monocytes % (auto) 18.6 %; Neutrophils % (auto) 61.2 %; Platelet Count 163 K/uL (130-400); RDW Coefficient of Variation 13.4 % (11.5-14.5); RDW Standard Deviation 42.9 fL (36.4-46.3); Red Blood Count 4.38 M/uL (4.7-6.1); White Blood Count 3.76 K/uL (4.8-10.8)
[2021-12-02 06:18] LABS: Albumin Level 2.7 gm/dl (3.4-5.0); BUN Creatinine Ratio 16.1 (10-20); Bilirubin,Total 0.6 mg/dl (0.2-1); Calcium 8.1 mg/dl (8.5-10.1); Creatinine Clr Calc Pharmacy 87.9 ml/min; Est GFR (African American) 101.3 ml/min; Est GFR (Non-African American) 87.4 ml/min
--- NOTE | 2021-12-02 08:24 | Hospitalist Progress Note ---
Date of Service December 02, 2021 Assessment & Plan (1) Pneumonia due to 2019-nCoV: Plan: 76yo male with history of DM, GERD presenting with Covid-19 PNA and hypoxia. Patient is unvaccinated against Covid. He is on day 8 of illness. Labs are significant for lymphopenia with leukopenia as well as mild hyponatremia with Mp=231. Elevated inflammatory markers to include CRP of 9.05 as well as Ferritin of 1498.3. Procalcitonin is negative and BNP is within normal range. CXR is significant for bilateral airspace opacities. First symptoms: ~11/23/21 First tested: in our [id number] Vaccinated: No Admission date:12/01/21 Admission O2 requirement: 2L Admission CRP:9 Dexamethasone course started: 12/01/21 Remdesivir started: 12/01/21 Tocilizumab given/baricitinib not started as not meeting criteria Tocilizumab/baricitinib contraindication: consider adding lasix if not improved Antibiotics: none -Lovenox 40mg BID (2) Type 2 diabetes mellitus: Plan: Patient with well controlled Type II DM, last HgbA1C from 11/17/21 = 6.4. Blood sugar presently 148. Patient with microalbuminuria. -Hold Glimepiride -Lantus 5u BID with ISS, goal blood sugar 100 - 140, if challenges with glucose control consider NPH daily to cover dexamethasone -Continue Lisinopril 2.5mg po daily (3) BPH w urinary obs/LUTS: Plan: Chronic. Patient urinating without difficulty -Continue Flomax 0.4mg po daily Plan: Ppx - Lovenox 40 BID Code - DNR/DNI per discussion with patient Admission and Anticipated Discharge Date Admission Date: December 01, 2021 Subjective Patient doing well says he feels better he still slightly tremulous but he was able to eat food today Review of Systems Review of Systems: Moderate distress and fatigue no headache, no visual changes no speech or swallowing issues no chest pain, pressure or palpitations Continue shortness of breath, nonproductive cough or wheezes no abdominal pain, nausea or vomiting, no diarrhea no dysuria, hematuria or frequency no focal joint pain or swelling no back pain, CVA tenderness or radicular pain no bruising, bleeding or rashes no focal signs of weakness or numbness or altered sensation no complaints of anxiety or depression.. Physical Exam Physical Exam: The patient appeared mild to moderate respiratory distress Vital signs as documented. Head exam is normocephalic atraumatic Neck is without JVD, thyromegaly, or carotid bruits. Lungs are coarse bilaterally in all lung lebron tachypnea Cardiac exam, Rhythm is regular.. No murmurs, rubs or gallops. Abdominal exam reveals normal bowel sounds, soft non tender, no masses Extremities are nonedematous and both pedal pulses are present Neurologic exam is alert and oriented, no focal loss of strength or sensation Skin is without bruises or rashes Psychologically is without concerns for anxiety or depression.. Results & Data Results & Data ([facility]) Vital Signs (Past 12 Hours) Vital Signs Temp Pulse Resp BP Pulse Ox 12/02/21 05:09 98.2 F 72 35 H 116/80 93 12/02/21 02:28 58 L 24 111/64 95 12/02/21 01:15 60 24 105/62 94 12/01/21 23:43 69 18 126/67 94 12/01/21 23:00 70 18 134/67 92 12/01/21 21:00 73 20 120/65 94 PG Care Time/CCT Total # of Minutes Spent Total Time Spent with Patient: Total time spent is greater than 50% in coordination of care (as documented) at patient's floor/unit and/or counseling patient: Coding Level of Care Code 97371 Subseq Hosp Care Lvl 3 Diagnoses Pneumonia due to 2019-nCoV U07.1; J12.82 Type 2 diabetes mellitus E11.9 BPH w urinary obs/LUTS N40.1; N13.8
[2021-12-02] MEDS: POT PHOSPHATE MONOBASIC W/ SOD TAB PO SCH ×4 (08:51→20:03)
[2021-12-02] MEDS: CHOLECALCIFEROL 1,000 UNITS 25 MCG TAB PO SCH (08:52)
[2021-12-02] MEDS: lisinopril 2.5 MG TAB PO SCH (08:52)
[2021-12-02] MEDS: dexAMETHasone 6 MG in SYRINGE 0 ML IV SCH (08:53)
[2021-12-02] MEDS: INSULIN GLARGINE SOLOSTAR 100 UNITS/ML 3 ML PEN SC SCH ×2 (08:54→20:58)
[2021-12-02] MEDS: INSULIN ASPART PER UNIT SC SCH ×5 (09:19→21:02)
--- NOTE | 2021-12-02 11:44 | Electrocardiogram Report ---
Test Reason : Blood Pressure : / mmHG Vent. Rate : 076 BPM Atrial Rate : 076 BPM P-R Int : 182 ms QRS Dur : 094 ms QT Int : 392 ms P-R-T Axes : 065 017 053 degrees QTc Int : 441 ms Normal sinus rhythm Normal ECG When compared with ECG of 11-SEP-2021 09:51, No significant change was found Confirmed by Brock Lawson ([id number]) on 12/02/2021 11:44:23 AM Referred By: Brock Pro Confirmed By:Brock Lawson
[2021-12-02] MEDS ORDERED: FUROSEMIDE INJ 20 MG/2 ML VIAL IV ONE (18:31)
[2021-12-02] MEDS: REMDESIVIR 100 MG in SODIUM CHLORIDE 0.9% 230 ML IV SCH (20:06)
[2021-12-03 05:58] LABS: Basophils # (auto) 0.01 K/uL (0-0.2); Basophils % (auto) 0.1 %; Hematocrit (blood only) 41.5 % (42-52); Hemoglobin 14.2 g/dL (14.0-18.0); Immature Granulocytes # (auto) 0.08 K/uL (0.00-0.02); Immature Granulocytes % (auto) 0.9 %; Lymphocytes # (auto) 1.43 K/uL (1.2-3.4); Lymphocytes % (auto) 16.2 %; Mean Corpuscular Hemoglobin 30.5 pg (25-34); Mean Corpuscular Hgb Conc 34.2 g/dL (32-36); Mean Corpuscular Volume 89.2 fL (80-100); Mean Platelet Volume 9.7 fL (7.4-10.4); Monocytes # (auto) 1.45 K/uL (0.11-0.59); Monocytes % (auto) 16.5 %; Neutrophils # (auto) 5.84 K/uL (1.4-6.5); Neutrophils % (auto) 66.3 %; Platelet Count 222 K/uL (130-400); RDW Coefficient of Variation 13.6 % (11.5-14.5); RDW Standard Deviation 44.8 fL (36.4-46.3); Red Blood Count 4.65 M/uL (4.7-6.1); White Blood Count 8.81 K/uL (4.8-10.8)
[2021-12-03 06:34] LABS: Albumin Level 2.8 gm/dl (3.4-5.0); BUN Creatinine Ratio 20.9 (10-20); Bilirubin Direct 0.2 mg/dl (0-0.2); Calcium 8.5 mg/dl (8.5-10.1); Creatinine Clr Calc Pharmacy 78.6 ml/min; Est GFR (African American) 96.7 ml/min; Est GFR (Non-African American) 83.5 ml/min; Potassium 3.5 mmol/L (3.5-5.1)
[2021-12-03 06:36] LABS: Bilirubin,Total 0.7 mg/dl (0.2-1); C Reactive Protein 4.94 mg/dl (0-0.29); Total Protein 7.4 gm/dl (6.4-8.2)
[2021-12-03] MEDS: lisinopril 2.5 MG TAB PO SCH (08:02)
[2021-12-03] MEDS: CHOLECALCIFEROL 1,000 UNITS 25 MCG TAB PO SCH (08:03)
[2021-12-03] MEDS: ENOXAPARIN INJ 40 MG/0.4 ML SYR SQ SCH ×2 (08:03→20:18)
[2021-12-03] MEDS: dexAMETHasone 6 MG in SYRINGE 0 ML IV SCH (08:03)
[2021-12-03] MEDS: POT PHOSPHATE MONOBASIC W/ SOD TAB PO SCH ×4 (08:03→20:19)
[2021-12-03] MEDS: INSULIN GLARGINE SOLOSTAR 100 UNITS/ML 3 ML PEN SC SCH ×2 (08:05→20:18)
[2021-12-03] MEDS: INSULIN ASPART PER UNIT SC SCH ×4 (08:06→20:18)
--- NOTE | 2021-12-03 08:37 | Hospitalist Progress Note ---
Date of Service December 03, 2021 Assessment & Plan (1) Pneumonia due to 2019-nCoV: Plan: 76yo male with history of DM, GERD presenting with Covid-19 PNA and hypoxia. Patient is unvaccinated against Covid. He is on day 8 of illness. Labs are significant for lymphopenia with leukopenia as well as mild hyponatremia with Qh=053. Elevated inflammatory markers to include CRP of 9.05 as well as Ferritin of 1498.3. Procalcitonin is negative and BNP is within normal range. CXR is significant for bilateral airspace opacities. First symptoms: ~11/23/21 First tested: in our [id number]/03/22 Vaccinated: No Admission date:12/01/21 Admission O2 requirement: 2L Current O2-4L Admission CRP:9 Dexamethasone course started: 12/01/21 Remdesivir started: 12/01/21 Tocilizumab given/baricitinib not started as not meeting criteria Tocilizumab/baricitinib contraindication: adding lasix 12/03 Antibiotics: none -Lovenox 40mg BID (2) Type 2 diabetes mellitus: Plan: Patient with well controlled Type II DM, last HgbA1C from 11/17/21 = 6.4. Blood sugar presently 148. Patient with microalbuminuria. -Hold Glimepiride -Lantus 5u BID with ISS, goal blood sugar 100 - 140, if challenges with glucose control consider NPH daily to cover dexamethasone -Continue Lisinopril 2.5mg po daily (3) BPH w urinary obs/LUTS: Plan: Chronic. Patient urinating without difficulty -Continue Flomax 0.4mg po daily Plan: Ppx - Lovenox 40 BID Code - DNR/DNI per discussion with patient Admission and Anticipated Discharge Date Admission Date: December 01, 2021 Subjective Patient doing well says he feels better less tremulous, but he was able to eat better today Review of Systems Review of Systems: Moderate distress and fatigue no headache, no visual changes no speech or swallowing issues no chest pain, pressure or palpitations Continue shortness of breath, nonproductive cough or wheezes no abdominal pain, nausea or vomiting, no diarrhea no dysuria, hematuria or frequency no focal joint pain or swelling no back pain, CVA tenderness or radicular pain no bruising, bleeding or rashes no focal signs of weakness or numbness or altered sensation no complaints of anxiety or depression.. Physical Exam Physical Exam: The patient appeared mild to moderate respiratory distress Vital signs as documented. Head exam is normocephalic atraumatic Neck is without JVD, thyromegaly, or carotid bruits. Lungs are coarse bilaterally in all lung lebron tachypnea Cardiac exam, Rhythm is regular.. No murmurs, rubs or gallops. Abdominal exam reveals normal bowel sounds, soft non tender, no masses Extremities are nonedematous and both pedal pulses are present Neurologic exam is alert and oriented, no focal loss of strength or sensation Skin is without bruises or rashes Psychologically is without concerns for anxiety or depression.. Results & Data Results & Data ([facility]) Vital Signs (Past 12 Hours) Vital Signs Temp Pulse Resp BP Pulse Ox 12/03/21 07:20 97.9 F 69 20 118/65 90 12/03/21 05:59 90 12/02/21 22:58 98.6 F 72 18 116/62 91 PG Care Time/CCT Total # of Minutes Spent Total Time Spent with Patient: Total time spent is greater than 50% in coordination of care (as documented) at patient's floor/unit and/or counseling patient: Coding Level of Care Code 63109 Subseq Hosp Care Lvl 2 Diagnoses Pneumonia due to 2019-nCoV U07.1; J12.82 Type 2 diabetes mellitus E11.9 BPH w urinary obs/LUTS N40.1; N13.8
[2021-12-03] MEDS: FUROSEMIDE 20 MG TAB PO SCH (09:47)
[2021-12-03] MEDS: TAMSULOSIN HCL 0.4 MG CAP PO SCH (20:19)
[2021-12-03] MEDS: REMDESIVIR 100 MG in SODIUM CHLORIDE 0.9% 230 ML IV SCH (21:21)
[2021-12-03] MEDS: SODIUM CHLORIDE 0.9% 10ML FLUSH IV SCH (22:27)
[2021-12-04 06:58] LABS: Basophils # (auto) 0.01 K/uL (0-0.2); Basophils % (auto) 0.1 %; Hematocrit (blood only) 40.2 % (42-52); Hemoglobin 13.8 g/dL (14.0-18.0); Immature Granulocytes # (auto) 0.12 K/uL (0.00-0.02); Immature Granulocytes % (auto) 1.5 %; Lymphocytes # (auto) 1.36 K/uL (1.2-3.4); Lymphocytes % (auto) 17.2 %; Mean Corpuscular Hemoglobin 30.4 pg (25-34); Mean Corpuscular Hgb Conc 34.3 g/dL (32-36); Mean Corpuscular Volume 88.5 fL (80-100); Mean Platelet Volume 9.7 fL (7.4-10.4); Monocytes # (auto) 1.67 K/uL (0.11-0.59); Monocytes % (auto) 21.2 %; Neutrophils # (auto) 4.73 K/uL (1.4-6.5); Platelet Count 227 K/uL (130-400); RDW Coefficient of Variation 13.4 % (11.5-14.5); RDW Standard Deviation 43.9 fL (36.4-46.3); Red Blood Count 4.54 M/uL (4.7-6.1); White Blood Count 7.89 K/uL (4.8-10.8)
[2021-12-04 07:21] LABS: Albumin Level 2.6 gm/dl (3.4-5.0); BUN Creatinine Ratio 23.7 (10-20); Bilirubin Direct 0.2 mg/dl (0-0.2); Calcium 8.4 mg/dl (8.5-10.1); Creatinine Clr Calc Pharmacy 87.9 ml/min; Est GFR (African American) 101.3 ml/min; Est GFR (Non-African American) 87.4 ml/min; Potassium 3.4 mmol/L (3.5-5.1)
[2021-12-04 07:24] LABS: Bilirubin,Total 0.7 mg/dl (0.2-1); Total Protein 6.8 gm/dl (6.4-8.2)
[2021-12-04] MEDS: dexAMETHasone 6 MG in SYRINGE 0 ML IV SCH (08:04)
[2021-12-04] MEDS: POT PHOSPHATE MONOBASIC W/ SOD TAB PO SCH ×4 (08:05→20:07)
[2021-12-04] MEDS: ENOXAPARIN INJ 40 MG/0.4 ML SYR SQ SCH ×2 (08:05→20:07)
[2021-12-04] MEDS: FUROSEMIDE 20 MG TAB PO SCH (08:07)
[2021-12-04] MEDS ORDERED: POTASSIUM CHLORIDE CRTAB 20 MEQ TABCR PO ONE (08:11)
--- NOTE | 2021-12-04 08:46 | XRay Report ---
SINGLE VIEW CHEST CLINICAL HISTORY: Hypoxia. FINDINGS: An AP, portable, upright chest radiograph is compared to study dated 12/01/2021. The heart is enlarged noting atherosclerotic calcification of the thoracic aorta. There is pulmonary vascular con gestion. Diffuse airspace opacities are again seen throughout both lungs. Suspect trace pleural effus ions. No pneumothorax is seen. The skeletal structures are osteopenic. The bony thorax is grossly int act. IMPRESSION: 1. Cardiomegaly with pulmonary vascular congestion. 2. Diffuse airspace opacities are seen throughout both lungs. This is similar to the 12/01/2021 examina tion and could represent pulmonary edema and/or an infectious/inflammatory pneumonitis. Clinical petty elation will be required and radiographic follow-up to resolution is recommended. 3. Suspect small pleural effusions ACT 112: Negative or not required by law. Electronically signed by: Deuce Bailey M.D. 12/04/2021 8:45 AM
--- NOTE | 2021-12-04 08:54 | Hospitalist Progress Note ---
Date of Service December 04, 2021 Assessment & Plan (1) Pneumonia due to 2019-nCoV: Plan: Rapidly worsening 12/04/20 First symptoms: ~11/23/21 First tested: in our system 12/01/21 Vaccinated: No Admission date:12/01/21 Admission O2 requirement: 2L Current O2- 15LPM oxymask but O2 sats 87-88%, high flow oxygen ordered Admission CRP: 9 on admission, now down to 2.74 Dexamethasone course started: 12/01/21 Remdesivir started: 12/01/21 Tocilizumab given/baricitinib not started as not meeting criteria (CRP too low) Tocilizumab/baricitinib contraindication: Started Lasix 12/03 Antibiotics: none repeat procalcitonin today again negative (2) Acute respiratory failure with hypoxia: Plan: Aim O2 sats > 90%. Transition to high flow oxygen as unable to maintain O2 sats on oxymask. CXR negative for pneumothorax CT for PE performed due to worsening hypoxia, negative for pulmonary emboli Procalcitonin negative (3) Type 2 diabetes mellitus: Plan: Patient with well controlled Type II DM, last HgbA1C from 11/17/21 = 6.4. BSG 156-213 yesterday -Hold Glimepiride -Lantus 5u BID with ISS, will add insulin NPH to cover for dexamethasone use (4) BPH w urinary obs/LUTS: Plan: Chronic. Patient urinating without difficulty -Continue Flomax 0.4mg po daily Plan: VTE Prophylaxis - Lovenox 40mg SQ BID Diet - T2DM Disposition - COVID isolation precautions, transfer to PCU Code - DNR/DNI per prior provider discussions with patient Admission and Anticipated Discharge Date Admission Date: December 01, 2021 Subjective Reports much worsening shortness of breath this morning. He had been stable on 4LPM O2 via nasal cannula but current O2 sats 88% on 15 LPM oxymask at the cur rent time. No chest pain or leg swelling. Has not had breakfast and no problems choking/coughing on food when seen. Continues with significant fatigue and reduced appetite. Review of Systems Review of Systems: All systems reviewed & are unremarkable except as noted in HPI & below Physical Exam Constitutional: WD/WN, vitals as above Eyes: + anicteric sclerae; normal pupil size ENMT: external ear and nose normal, oropharynx normal Neck: trachea midline, no thyromegaly Respiratory: + labored breathing, + retractions and + uses accessory muscles Auscultation: + crackles (fine bibasal); no diminished lung sounds Cardiovascular: RRR, no murmur, no edema Extremities: normal capillary refill; no calf tenderness and no pedal edema Gastrointestinal (Abdomen): normal bowel sounds, soft, nontender, no hepatosplenomegaly Musculoskeletal: no cyanosis or clubbing, extremities motor strength 5/5 Skin: no rashes, warm and dry Neurologic: moves all extremities and awake; not confused Psychiatric: A+Ox3, euthymic affect Results & Data Results & Data ([facility]) Vital Signs (Past 12 Hours) Vital Signs Temp Pulse Resp BP Pulse Ox 12/04/21 07:32 36.5 C 73 24 123/74 91 12/03/21 22:39 36.8 C 62 18 118/64 88 L Laboratory Results Abnormal lab results 12/03/21 12/04/21 12/04/21 Range/Units 20:08 06:20 06:20 RBC 4.54 L (4.7-6.1) M/uL Hgb 13.8 L (14.0-18.0) g/dL Hct 40.2 L (42-52) % [place] # (Auto) 1.67 H (0.11-0.59) K/uL Immature Gran # (Auto) 0.12 H (0.00-0.02) K/uL ABG pH (7.35-7.45) ABG pO2 (80-95) mmHg ABG HCO3 (19-24) mmol/L ABG O2 Saturation (90-95) % ABG Base Excess (-9-1.8) mEq/L Potassium 3.4 L (3.5-5.1) mmol/L BUN/Creatinine Ratio 23.7 H (10-20) Glucose 139 H (70-99) mg/dl POC Glucose 178 H (70-99) mg/dl Calcium 8.4 L (8.5-10.1) mg/dl AST 45 H (15-37) U/L Alkaline Phosphatase 44 L (45-117) U/L C-Reactive Protein (0-0.29) mg/dl Albumin 2.6 L (3.4-5.0) gm/dl 12/04/21 12/04/21 12/04/21 Range/Units 07:50 09:11 09:12 RBC (4.7-6.1) M/uL Hgb (14.0-18.0) g/dL Hct (42-52) % [place] # (Auto) (0.11-0.59) K/uL Immature Gran # (Auto) (0.00-0.02) K/uL ABG pH 7.51 H* (7.35-7.45) ABG pO2 47 L (80-95) mmHg ABG HCO3 28 H (19-24) mmol/L ABG O2 Saturation 83.0 L (90-95) % ABG Base Excess 5.0 H (-9-1.8) mEq/L Potassium (3.5-5.1) mmol/L BUN/Creatinine Ratio (10-20) Glucose (70-99) mg/dl POC Glucose 142 H (70-99) mg/dl Calcium (8.5-10.1) mg/dl AST (15-37) U/L Alkaline Phosphatase (45-117) U/L C-Reactive Protein 2.74 H (0-0.29) mg/dl Albumin (3.4-5.0) gm/dl 12/04/21 12/04/21 Range/Units 11:24 16:20 RBC (4.7-6.1) M/uL Hgb (14.0-18.0) g/dL Hct (42-52) % [place] # (Auto) (0.11-0.59) K/uL Immature Gran # (Auto) (0.00-0.02) K/uL ABG pH (7.35-7.45) ABG pO2 (80-95) mmHg ABG HCO3 (19-24) mmol/L ABG O2 Saturation (90-95) % ABG Base Excess (-9-1.8) mEq/L Potassium (3.5-5.1) mmol/L BUN/Creatinine Ratio (10-20) Glucose (70-99) mg/dl POC Glucose 176 H 192 H (70-99) mg/dl Calcium (8.5-10.1) mg/dl AST (15-37) U/L Alkaline Phosphatase (45-117) U/L C-Reactive Protein (0-0.29) mg/dl Albumin (3.4-5.0) gm/dl PG Care Time/CCT Total # of Minutes Spent Total Time Spent with Patient: Total time spent is greater than 50% in coordination of care (as documented) at patient's floor/unit and/or counseling patient: Coding Level of Care Code 05106 Subseq Hosp Care Lvl 3 Diagnoses Pneumonia due to 2019-nCoV U07.1; J12.82 Type 2 diabetes mellitus E11.9 BPH w urinary obs/LUTS N40.1; N13.8 Acute respiratory failure with hypoxia J96.01
[2021-12-04] MEDS: CHOLECALCIFEROL 1,000 UNITS 25 MCG TAB PO SCH (09:00)
[2021-12-04] MEDS: lisinopril 2.5 MG TAB PO SCH (09:00)
[2021-12-04 09:28] LABS: HCO3 ABG 28 mmol/L (19-24); PCO2 ABG 36 mmHg (35-46); PO2 ABG 47 mmHg (80-95)
[2021-12-04] MEDS: INSULIN ASPART PER UNIT SC SCH ×4 (09:30→21:17)
[2021-12-04] MEDS: INSULIN GLARGINE SOLOSTAR 100 UNITS/ML 3 ML PEN SC SCH ×2 (09:57→21:16)
[2021-12-04 11:04] LABS: Allen Test Pos (Pos)
[2021-12-04 11:05] LABS: pH ABG 7.51 (7.35-7.45)
[2021-12-04] MEDS ORDERED: OPTIRAY 320 125ml IV ONE (11:57)
--- NOTE | 2021-12-04 12:33 | CT Scan Report ---
CHEST CTA for PULMONARY ARTERIES CT DOSE: 501.90 mGycm HISTORY: Short of breath. Covid pneumonia. TECHNIQUE: Multiaxial CT images of the chest were performed following the intravenous administration of contrast to evaluate the pulmonary arteries. Maximal intensity projection images were also obtaine d. A dose lowering technique was utilized adhering to the principles of ALARA. COMPARISON STUDY: None. FINDINGS: Limited views of the upper abdomen demonstrate normal spleen and adrenal glands. There is a 2.1 cm hypodense lesion within the right hepatic lobe. This favors a cyst. No pleural or pericardial effusions. The heart is top normal in size. Normal caliber esophagus. Mild mediastinal and bilateral hilar lymphadenopathy. This is likely reactive. Normal caliber thoracic aorta with no evidence for d issection. No filling defects within the pulmonary arteries to suggest a pulmonary embolus. No fractu res within the visualized osseous structures. No pneumothorax. The central airways are patent. Multif ocal groundglass airspace opacities demonstrating a peripheral predominance. There are also patchy ar eas of consolidation within the base of the lower lobes. This favors a moderate to severe multifocal viral pneumonia. IMPRESSION: 1. No evidence for pulmonary embolus. 2. Multifocal groundglass and consolidative airspace opacities seen within the lungs likely represent ing a moderate to severe viral pneumonia. 3. Mild mediastinal and bilateral hilar lymphadenopathy. This is likely reactive. ACT 112: Negative or not required by law. Electronically signed by: Danny Bazzi M.D. 12/04/2021 12:32 PM
[2021-12-04] MEDS ORDERED: FUROSEMIDE INJ 20 MG/2 ML VIAL IV ONE (14:01)
[2021-12-04] MEDS ORDERED: dexAMETHasone 4 MG in SYRINGE 0 ML IV ONE (14:30)
--- NOTE | 2021-12-04 18:17 | Communication Note ---
Date of Service: December 04, 2021 Updated his over the phone. After calling his and them discussing code status together he wishes to change to be for full code.
[2021-12-04] MEDS: TAMSULOSIN HCL 0.4 MG CAP PO SCH (20:08)
[2021-12-04 20:35] LABS: BUN Creatinine Ratio 20.1 (10-20); Calcium 8.2 mg/dl (8.5-10.1); Creatinine Clr Calc Pharmacy 57.6 ml/min; Est GFR (African American) 69.5 ml/min; Potassium 3.9 mmol/L (3.5-5.1)
[2021-12-04] MEDS: REMDESIVIR 100 MG in SODIUM CHLORIDE 0.9% 230 ML IV SCH (21:15)
[2021-12-04] MEDS: SODIUM CHLORIDE 0.9% 10ML FLUSH IV SCH (22:34)
--- NOTE | 2021-12-05 06:18 | Electrocardiogram Report ---
Test Reason : Blood Pressure : / mmHG Vent. Rate : 072 BPM Atrial Rate : 072 BPM P-R Int : 190 ms QRS Dur : 094 ms QT Int : 442 ms P-R-T Axes : 063 009 045 degrees QTc Int : 483 ms Normal sinus rhythm Prolonged QT Abnormal ECG When compared with ECG of 01-DEC-2021 17:51, QT has lengthened Confirmed by Jez Reed ([id number] on 12/05/2021 6:18:55 AM Referred By: Brock Browning Confirmed By:Jez Reed
[2021-12-05 08:13] LABS: Albumin Level 2.8 gm/dl (3.4-5.0); BUN Creatinine Ratio 28.9 (10-20); Calcium 8.2 mg/dl (8.5-10.1); Creatinine Clr Calc Pharmacy 76.8 ml/min; Est GFR (African American) 95.8 ml/min; Est GFR (Non-African American) 82.7 ml/min; Potassium 3.6 mmol/L (3.5-5.1)
[2021-12-05 08:16] LABS: Albumin Globulin Ratio 0.6 (0.9-2); Globulin 4.7 gm/dl (2.5-4.0); Total Protein 7.5 gm/dl (6.4-8.2)
[2021-12-05] MEDS: INSULIN ASPART PER UNIT SC SCH ×4 (08:39→21:15)
[2021-12-05] MEDS: CHOLECALCIFEROL 1,000 UNITS 25 MCG TAB PO SCH (08:52)
[2021-12-05] MEDS: ENOXAPARIN INJ 40 MG/0.4 ML SYR SQ SCH ×2 (08:53→21:13)
[2021-12-05] MEDS: dexAMETHasone 10 MG in SYRINGE 0 ML IV SCH (08:53)
[2021-12-05] MEDS: POT PHOSPHATE MONOBASIC W/ SOD TAB PO SCH ×4 (08:54→21:42)
[2021-12-05] MEDS ORDERED: FUROSEMIDE 40 MG/4 ML VIAL IV SCH (09:00)
[2021-12-05] MEDS: INSULIN HUMAN NPH SC SCH (09:02)
[2021-12-05] MEDS: INSULIN GLARGINE SOLOSTAR 100 UNITS/ML 3 ML PEN SC SCH ×2 (09:02→21:13)
[2021-12-05 09:27] LABS: Bilirubin,Total 0.9 mg/dl (0.2-1)
--- NOTE | 2021-12-05 10:25 | Hospitalist Progress Note ---
Date of Service December 05, 2021 Assessment & Plan (1) Pneumonia due to 2019-nCoV: Plan: Rapidly worsening 12/04/20 First symptoms: ~11/23/21 First tested: in our system 12/01/21 Vaccinated: No Admission date:12/01/21 Admission O2 requirement: 2L, Current O2- High flow NC FiO2 80% Admission CRP: 9 on admission, now down to 2.74 Dexamethasone course started: 12/01/21 Remdesivir started: 12/01/21 Tocilizumab given/baricitinib not started as not meeting criteria (CRP too low) Tocilizumab/baricitinib contraindication: Started Lasix 12/03 - large response to this with improvement in his oxygenation however appears to be getting dry and approx 3L output yesterday, had 40mg IV already today, will reduce to 20mg IV tomorrow. Antibiotics: procalcitonin negative (2) Acute respiratory failure with hypoxia: Plan: Secondary to COVID-19 as above Aim O2 sats > 90%. Continue to wean high flow as able. CXR negative for pneumothorax CT for PE performed due to worsening hypoxia, negative for pulmonary emboli Procalcitonin negative (3) Type 2 diabetes mellitus: Plan: Patient with well controlled Type II DM, last HgbA1C from 11/17/21 = 6.4. BSG 156-213 yesterday -Hold Glimepiride -Lantus 5u BID with ISS, will add insulin NPH to cover for dexamethasone use (4) BPH w urinary obs/LUTS: Plan: Chronic. Patient urinating without difficulty -Continue Flomax 0.4mg po daily Plan: VTE Prophylaxis - Lovenox 40mg SQ BID Diet - T2DM Disposition - COVID isolation precautions, continue on PCU Code - Full code on re-discussion with the patient and his 12/05 Admission and Anticipated Discharge Date Admission Date: December 01, 2021 Subjective Fortunately appears more stable overnight from yesterday. No real change in his shortness of breath. Eating and breathing well. FiO2 down from 90-100% yesterday to 80% today. Having bowel movements. Review of Systems Review of Systems: All systems reviewed & are unremarkable except as noted in HPI & below Physical Exam Constitutional: WD/WN, vitals as above Eyes: + anicteric sclerae; normal pupil size ENMT: Mouth: + dry oral mucous membranes Neck: trachea midline, no thyromegaly Respiratory: normal respiratory effort; no labored breathing, no retractions and does not use accessory muscles Auscultation: + crackles (fine bibasal); no diminished lung sounds Cardiovascular: RRR, no murmur, no edema Extremities: normal capillary refill; no calf tenderness and no pedal edema Gastrointestinal (Abdomen): normal bowel sounds, soft, nontender, no hepatosplenomegaly Musculoskeletal: no cyanosis or clubbing, extremities motor strength 5/5 Skin: no rashes, warm and dry Neurologic: moves all extremities and awake; not confused Psychiatric: A+Ox3, euthymic affect Results & Data Results & Data ([facility]) Vital Signs (Past 12 Hours) Vital Signs Temp Pulse Pulse Resp BP BP Pulse Ox 12/05/21 10:20 79 26 H 86 L 12/05/21 07:59 72 26 H 91 12/05/21 07:44 36.8 C 75 18 124/69 90 12/05/21 05:54 36.7 C 82 22 122/68 86 L 12/05/21 04:00 80 12/05/21 00:01 36.8 C 73 20 115/64 92 PG Care Time/CCT Total # of Minutes Spent Total Time Spent with Patient: Total time spent is greater than 50% in coordination of care (as documented) at patient's floor/unit and/or counseling patient: Coding Level of Care Code 53583 Subseq Hosp Care Lvl 2 Diagnoses Pneumonia due to 2019-nCoV U07.1; J12.82 Acute respiratory failure with hypoxia J96.01 Type 2 diabetes mellitus E11.9 BPH w urinary obs/LUTS N40.1; N13.8
[2021-12-05] MEDS: REMDESIVIR 100 MG in SODIUM CHLORIDE 0.9% 230 ML IV SCH (21:12)
[2021-12-05] MEDS: TAMSULOSIN HCL 0.4 MG CAP PO SCH (21:14)
[2021-12-06] MEDS: SODIUM CHLORIDE 0.9% 10ML FLUSH IV SCH (00:05)
[2021-12-06 08:02] LABS: BUN Creatinine Ratio 24.2 (10-20); Calcium 8.7 mg/dl (8.5-10.1); Creatinine Clr Calc Pharmacy 72.6 ml/min; Est GFR (Non-African American) 79.4 ml/min; Potassium 3.5 mmol/L (3.5-5.1)
[2021-12-06 08:05] LABS: Albumin Globulin Ratio 0.6 (0.9-2); Albumin Level 2.9 gm/dl (3.4-5.0); Bilirubin,Total 1.2 mg/dl (0.2-1); Globulin 4.9 gm/dl (2.5-4.0); Total Protein 7.8 gm/dl (6.4-8.2)
--- NOTE | 2021-12-06 08:36 | Hospitalist Progress Note ---
Date of Service December 06, 2021 Assessment & Plan (1) Pneumonia due to 2019-nCoV: Plan: Rapidly worsening 12/04/20 First symptoms: ~11/23/21 First tested: in our system 12/01/21 Vaccinated: No Admission date:12/01/21 Admission O2 requirement: 2L, Current O2- High flow NC and Cpap Admission CRP: 9 on admission, down to 2.74 Dexamethasone course started: 12/01/21 Remdesivir started: 12/01/21 Tocilizumab given/baricitinib not started now out of time window Started Lasix 12/03 - large response to this with improvement in his oxygenation however appears to be getting dry and approx 3L output reduce to 20mg IV Antibiotics: procalcitonin negative (2) Acute respiratory failure with hypoxia: Plan: Secondary to COVID-19 as above Aim O2 sats > 90%. Continue to wean high flow as able. CXR negative for pneumothorax CT for PE performed due to worsening hypoxia, negative for pulmonary emboli Procalcitonin negative (3) Type 2 diabetes mellitus: Plan: Patient with well controlled Type II DM, last HgbA1C from 11/17/21 = 6.4. BSG 156-213 yesterday -Hold Glimepiride -Lantus 5u BID with ISS, will add insulin NPH to cover for dexamethasone use (4) BPH w urinary obs/LUTS: Plan: Chronic. Patient urinating without difficulty -Continue Flomax 0.4mg po daily Plan: VTE Prophylaxis - Lovenox 40mg SQ BID Diet - T2DM Disposition - COVID isolation precautions, continue on PCU Code - Full code on re-discussion with the patient and his 12/05 Admission and Anticipated Discharge Date Admission Date: December 01, 2021 Subjective pt is happy but remains hypoxic, on CPap and High Flow nasal canulae Review of Systems Review of Systems: Moderate distress and fatigue no headache, no visual changes no speech or swallowing issues no chest pain, pressure or palpitations Continue shortness of breath, nonproductive cough or wheezes no abdominal pain, nausea or vomiting, no diarrhea no dysuria, hematuria or frequency no focal joint pain or swelling no back pain, CVA tenderness or radicular pain no bruising, bleeding or rashes no focal signs of weakness or numbness or altered sensation no complaints of anxiety or depression.. Physical Exam Physical Exam: The patient appeared mild to moderate respiratory distress Vital signs as documented. Head exam is normocephalic atraumatic Neck is without JVD, thyromegaly, or carotid bruits. Lungs are coarse bilaterally in all lung lebron tachypnea Cardiac exam, Rhythm is regular.. No murmurs, rubs or gallops. Abdominal exam reveals normal bowel sounds, soft non tender, no masses Extremities are nonedematous and both pedal pulses are present Neurologic exam is alert and oriented, no focal loss of strength or sensation Skin is without bruises or rashes Psychologically is without concerns for anxiety or depression.. Results & Data Results & Data ([facility]) Vital Signs (Past 12 Hours) Vital Signs Temp Pulse Pulse Resp BP Pulse Ox 12/06/21 07:12 98.2 F 74 20 130/69 92 12/06/21 06:08 95 12/06/21 05:45 97.7 F 69 30 H 115/65 97 12/06/21 04:30 34 H 95 12/06/21 03:17 70 24 88 L 12/06/21 00:03 98.2 F 59 L 22 120/66 90 12/05/21 23:00 58 L 12/05/21 22:12 56 L 22 96 12/05/21 20:40 65 24 90 12/05/21 20:39 98.1 F 63 20 119/67 90 PG Care Time/CCT Total # of Minutes Spent Total Time Spent with Patient: Total time spent is greater than 50% in coordination of care (as documented) at patient's floor/unit and/or counseling patient: Coding Level of Care Code 45856 Subseq Hosp Care Lvl 2 Diagnoses Pneumonia due to 2019-nCoV U07.1; J12.82 Acute respiratory failure with hypoxia J96.01 Type 2 diabetes mellitus E11.9 BPH w urinary obs/LUTS N40.1; N13.8
[2021-12-06] MEDS ORDERED: FUROSEMIDE INJ 20 MG/2 ML VIAL IV SCH (09:00)
[2021-12-06] MEDS: INSULIN ASPART PER UNIT SC SCH ×4 (09:04→21:11)
[2021-12-06] MEDS: ENOXAPARIN INJ 40 MG/0.4 ML SYR SQ SCH ×2 (10:51→20:49)
[2021-12-06] MEDS: INSULIN HUMAN NPH SC SCH (10:51)
[2021-12-06] MEDS: INSULIN GLARGINE SOLOSTAR 100 UNITS/ML 3 ML PEN SC SCH ×2 (10:51→21:11)
[2021-12-06] MEDS: dexAMETHasone 10 MG in SYRINGE 0 ML IV SCH (10:51)
[2021-12-06] MEDS: CHOLECALCIFEROL 1,000 UNITS 25 MCG TAB PO SCH (10:55)
[2021-12-06] MEDS: POT PHOSPHATE MONOBASIC W/ SOD TAB PO SCH ×4 (10:56→20:49)
[2021-12-06] MEDS: TAMSULOSIN HCL 0.4 MG CAP PO SCH (20:50)
[2021-12-07] MEDS: dexAMETHasone 10 MG in SYRINGE 0 ML IV SCH (08:47)
[2021-12-07] MEDS: ENOXAPARIN INJ 40 MG/0.4 ML SYR SQ SCH ×2 (08:47→22:37)
[2021-12-07] MEDS: CHOLECALCIFEROL 1,000 UNITS 25 MCG TAB PO SCH (08:47)
[2021-12-07] MEDS: FUROSEMIDE 40 MG/4 ML VIAL IV SCH (09:03)
[2021-12-07] MEDS: INSULIN ASPART PER UNIT SC SCH ×4 (09:15→22:43)
[2021-12-07] MEDS: INSULIN GLARGINE SOLOSTAR 100 UNITS/ML 3 ML PEN SC SCH ×2 (09:15→22:46)
[2021-12-07] MEDS: INSULIN HUMAN NPH SC SCH (09:15)
[2021-12-07] MEDS: POT PHOSPHATE MONOBASIC W/ SOD TAB PO SCH ×4 (10:14→22:38)
[2021-12-07] MEDS: POLYETHYLENE (MIRALAX) 17 GM PACK PO PRN (14:26)
--- NOTE | 2021-12-07 17:36 | Hospitalist Progress Note ---
Date of Service December 07, 2021 Assessment & Plan (1) Pneumonia due to 2019-nCoV: Plan: Rapidly worsening 12/04/20 First symptoms: ~11/23/21 First tested: in our system 12/01/21 Vaccinated: No Admission date:12/01/21 Admission O2 requirement: 2L, Current O2- High flow NC and Cpap Admission CRP: 9 on admission, down to 2.74 Dexamethasone course started: 12/01/21 Remdesivir started: 12/01/21 Tocilizumab given/baricitinib not started now out of time window Started Lasix 12/03 - remains euvolemic Antibiotics: procalcitonin negative (2) Acute respiratory failure with hypoxia: Plan: Secondary to COVID-19 as above Aim O2 sats > 90%. Continue to wean high flow as able. CXR negative for pneumothorax CT for PE performed due to worsening hypoxia, negative for pulmonary emboli Procalcitonin negative (3) Type 2 diabetes mellitus: Plan: Patient with well controlled Type II DM, last HgbA1C from 11/17/21 = 6.4. BSG 156-213 yesterday -Hold Glimepiride -Lantus 5u BID with ISS, will add insulin NPH to cover for dexamethasone use (4) BPH w urinary obs/LUTS: Plan: Chronic. Patient urinating without difficulty -Continue Flomax 0.4mg po daily Plan: VTE Prophylaxis - Lovenox 40mg SQ BID Diet - T2DM Disposition - COVID isolation precautions, continue on PCU Code - Full code on re-discussion with the patient and his 12/05 Admission and Anticipated Discharge Date Admission Date: December 01, 2021 Subjective pt is happy but remains hypoxic, on CPap and High Flow nasal canulae Review of Systems Review of Systems: Moderate distress and fatigue no headache, no visual changes no speech or swallowing issues no chest pain, pressure or palpitations Continue shortness of breath, nonproductive cough or wheezes no abdominal pain, nausea or vomiting, no diarrhea no dysuria, hematuria or frequency no focal joint pain or swelling no back pain, CVA tenderness or radicular pain no bruising, bleeding or rashes no focal signs of weakness or numbness or altered sensation no complaints of anxiety or depression.. Physical Exam Physical Exam: The patient appeared mild to moderate respiratory distress Vital signs as documented. Head exam is normocephalic atraumatic Neck is without JVD, thyromegaly, or carotid bruits. Lungs are coarse bilaterally in all lung lebron tachypnea Cardiac exam, Rhythm is regular.. No murmurs, rubs or gallops. Abdominal exam reveals normal bowel sounds, soft non tender, no masses Extremities are nonedematous and both pedal pulses are present Neurologic exam is alert and oriented, no focal loss of strength or sensation Skin is without bruises or rashes Psychologically is without concerns for anxiety or depression.. Results & Data Results & Data ([facility]) Vital Signs (Past 12 Hours) Vital Signs Temp Pulse Pulse Pulse Resp BP BP 12/07/21 15:23 98.2 F 77 22 107/61 12/07/21 15:12 69 17 12/07/21 15:02 66 12/07/21 11:30 99.0 F 86 22 107/65 12/07/21 11:29 86 19 12/07/21 08:00 73 12/07/21 07:44 90 23 12/07/21 07:39 98.2 F 91 H 28 H 118/63 12/07/21 05:41 98.8 F 88 22 124/66 Pulse Ox 12/07/21 15:23 95 12/07/21 15:12 94 12/07/21 15:02 12/07/21 11:30 93 12/07/21 11:29 93 12/07/21 08:00 12/07/21 07:44 90 12/07/21 07:39 86 L 12/07/21 05:41 90 PG Care Time/CCT Total # of Minutes Spent Total Time Spent with Patient: Total time spent is greater than 50% in coordination of care (as documented) at patient's floor/unit and/or counseling patient: Coding Level of Care Code 80116 Subseq Hosp Care Lvl 2 Diagnoses Pneumonia due to 2019-nCoV U07.1; J12.82 Acute respiratory failure with hypoxia J96.01 Type 2 diabetes mellitus E11.9 BPH w urinary obs/LUTS N40.1; N13.8
[2021-12-07] MEDS: TAMSULOSIN HCL 0.4 MG CAP PO SCH (22:39)
[2021-12-08] MEDS ORDERED: LORazepam 1 MG/2 ML VIAL IV STA (02:13)
[2021-12-08] MEDS ORDERED: ACETAMINOPHEN 1,000 MG/100 ML VIAL IV PRN (04:18)
[2021-12-08] MEDS ORDERED: ACETAMINOPHEN 1000 MG/100 ML IV IV ONE (04:20)
--- NOTE | 2021-12-08 08:26 | Hospitalist Progress Note ---
Date of Service December 08, 2021 Assessment & Plan (1) Pneumonia due to 2019-nCoV: Plan: Rapidly worsening 12/04/20 First symptoms: ~11/23/21 First tested: in our system 12/01/21 Vaccinated: No Admission date:12/01/21 Admission O2 requirement: 2L, Current O2- High flow NC and Cpap, slight tapering Admission CRP: 9 on admission, down to 2.74 Dexamethasone course started: 12/01/21 Remdesivir started: 12/01/21 Tocilizumab given/baricitinib not started now out of time window Started Lasix 12/03 - remains euvolemic Antibiotics: procalcitonin negative (2) Acute respiratory failure with hypoxia: Plan: Secondary to COVID-19 as above Aim O2 sats > 90%. Continue to wean high flow as able. CXR negative for pneumothorax CT for PE performed due to worsening hypoxia, negative for pulmonary emboli Procalcitonin negative (3) Type 2 diabetes mellitus: Plan: Patient with well controlled Type II DM, last HgbA1C from 11/17/21 = 6.4. BSG 156-213 yesterday -Hold Glimepiride -Lantus 5u BID with ISS, will add insulin NPH 15 units to cover for dexamethasone use (4) BPH w urinary obs/LUTS: Plan: Chronic. Patient urinating without difficulty -Continue Flomax 0.4mg po daily Plan: VTE Prophylaxis - Lovenox 40mg SQ BID Diet - T2DM Disposition - COVID isolation precautions, continue on PCU Code - Full code on re-discussion with the patient and his 12/05 Admission and Anticipated Discharge Date Admission Date: December 01, 2021 Subjective pt remains on relatively high support, but mild improvements each day. the pt wants to get better but overall if moving slowly Review of Systems Review of Systems: Moderate distress and fatigue no headache, no visual changes no speech or swallowing issues no chest pain, pressure or palpitations Continue shortness of breath, nonproductive cough or wheezes no abdominal pain, nausea or vomiting, no diarrhea no dysuria, hematuria or frequency no focal joint pain or swelling no back pain, CVA tenderness or radicular pain no bruising, bleeding or rashes no focal signs of weakness or numbness or altered sensation no complaints of anxiety or depression.. Physical Exam Physical Exam: The patient appeared mild to moderate respiratory distress Vital signs as documented. Head exam is normocephalic atraumatic Neck is without JVD, thyromegaly, or carotid bruits. Lungs are coarse bilaterally in all lung lebron tachypnea Cardiac exam, Rhythm is regular.. No murmurs, rubs or gallops. Abdominal exam reveals normal bowel sounds, soft non tender, no masses Extremities are nonedematous and both pedal pulses are present Neurologic exam is alert and oriented, no focal loss of strength or sensation Skin is without bruises or rashes Psychologically is without concerns for anxiety or depression.. Results & Data Results & Data ([facility]) Vital Signs (Past 12 Hours) Vital Signs Temp Pulse Pulse Resp BP BP Pulse Ox 12/08/21 08:21 81 19 90 12/08/21 06:35 97.9 F 73 24 135/72 95 12/08/21 04:17 100.2 F H 94 H 40 H 94 12/08/21 02:12 83 32 H 90 12/07/21 23:14 97.7 F 69 18 120/68 90 12/07/21 22:45 64 28 H 90 PG Care Time/CCT Total # of Minutes Spent Total Time Spent with Patient: Total time spent is greater than 50% in coordination of care (as documented) at patient's floor/unit and/or counseling patient: Coding Level of Care Code 80322 Subseq Hosp Care Lvl 2 Diagnoses Pneumonia due to 2019-nCoV U07.1; J12.82 Acute respiratory failure with hypoxia J96.01 Type 2 diabetes mellitus E11.9 BPH w urinary obs/LUTS N40.1; N13.8
[2021-12-08] MEDS: INSULIN ASPART PER UNIT SC SCH ×4 (08:46→21:27)
[2021-12-08] MEDS: dexAMETHasone 10 MG in SYRINGE 0 ML IV SCH (08:53)
[2021-12-08] MEDS: FUROSEMIDE 40 MG/4 ML VIAL IV SCH (08:53)
[2021-12-08] MEDS: CHOLECALCIFEROL 1,000 UNITS 25 MCG TAB PO SCH (08:53)
[2021-12-08] MEDS: ENOXAPARIN INJ 40 MG/0.4 ML SYR SQ SCH ×2 (08:53→20:58)
[2021-12-08] MEDS: INSULIN GLARGINE SOLOSTAR 100 UNITS/ML 3 ML PEN SC SCH ×2 (08:54→21:27)
[2021-12-08] MEDS: INSULIN HUMAN NPH SC SCH (08:54)
[2021-12-08] MEDS: POT PHOSPHATE MONOBASIC W/ SOD TAB PO SCH ×4 (09:58→20:57)
[2021-12-08] MEDS: TAMSULOSIN HCL 0.4 MG CAP PO SCH (20:58)
[2021-12-08] MEDS ORDERED: SODIUM CHLORIDE 0.65% NA SOLN 45 ML (OCEAN) ONE (21:05)
[2021-12-09] MEDS ORDERED: LORazepam 1 MG/2 ML VIAL IV STA ×2 (00:28→21:25)
[2021-12-09] MEDS: ACETAMINOPHEN 325 MG TAB PO PRN (07:32)
[2021-12-09] MEDS: CHOLECALCIFEROL 1,000 UNITS 25 MCG TAB PO SCH (07:32)
[2021-12-09] MEDS: dexAMETHasone 10 MG in SYRINGE 0 ML IV SCH (07:32)
[2021-12-09] MEDS: POT PHOSPHATE MONOBASIC W/ SOD TAB PO SCH ×4 (07:32→21:19)
[2021-12-09] MEDS: ENOXAPARIN INJ 40 MG/0.4 ML SYR SQ SCH ×2 (07:32→21:20)
[2021-12-09] MEDS: INSULIN GLARGINE SOLOSTAR 100 UNITS/ML 3 ML PEN SC SCH ×2 (07:33→21:20)
[2021-12-09] MEDS: FUROSEMIDE 40 MG/4 ML VIAL IV SCH (07:34)
[2021-12-09] MEDS: INSULIN HUMAN NPH SC SCH (07:34)
[2021-12-09] MEDS: INSULIN ASPART PER UNIT SC SCH ×4 (09:04→21:20)
--- NOTE | 2021-12-09 20:24 | Hospitalist Progress Note ---
Date of Service December 09, 2021 Assessment & Plan (1) Pneumonia due to 2019-nCoV: Plan: Rapidly worsening 12/04/20 First symptoms: ~11/23/21 First tested: in our system 12/01/21 Vaccinated: No Admission date:12/01/21 Admission O2 requirement: 2L, Current O2- High flow NC and Cpap: Patient remains on high flow. Now on 50 L/MIN 90% FIO2 Admission CRP: 9 on admission, down to 2.74 Dexamethasone course started: 12/01/21 Remdesivir started: 12/01/21 Tocilizumab given/baricitinib not started now out of time window Started Lasix 12/03 - remains euvolemic Antibiotics: procalcitonin negative (2) Acute respiratory failure with hypoxia: Plan: Secondary to COVID-19 as above Aim O2 sats > 90%. Continue to wean high flow as able. CXR negative for pneumothorax CT for PE performed due to worsening hypoxia, negative for pulmonary emboli Procalcitonin negative (3) Type 2 diabetes mellitus: Plan: Patient with well controlled Type II DM, last HgbA1C from 11/17/21 = 6.4. BSG 156-213 yesterday -Hold Glimepiride -Lantus 5u BID with ISS, will add insulin NPH 15 units to cover for dexamethasone use (4) BPH w urinary obs/LUTS: Plan: Chronic. Patient urinating without difficulty -Continue Flomax 0.4mg po daily Plan: VTE Prophylaxis - Lovenox 40mg SQ BID Diet - T2DM Disposition - COVID isolation precautions, continue on PCU Code - Full code on re-discussion with the patient and his 12/05 Admission and Anticipated Discharge Date Admission Date: December 01, 2021 Subjective 76 yo male reports no new symptoms, Review of Systems Review of Systems: All systems reviewed & are unremarkable except as noted in HPI & below Physical Exam Physical Exam: The patient appeared mild to moderate respiratory distress Vital signs as documented. Head exam is normocephalic atraumatic Neck is without JVD, thyromegaly, or carotid bruits. Lungs are coarse bilaterally in all lung lebron tachypnea Cardiac exam, Rhythm is regular.. No murmurs, rubs or gallops. Abdominal exam reveals normal bowel sounds, soft non tender, no masses Extremities are nonedematous and both pedal pulses are present Neurologic exam is alert and oriented, no focal loss of strength or sensation Skin is without bruises or rashes Psychologically is without concerns for anxiety or depression. Results & Data Results & Data ([facility]) Vital Signs (Past 12 Hours) Vital Signs Temp Pulse Resp BP Pulse Ox 12/09/21 19:40 37.7 C H 73 20 109/47 L 88 L 12/09/21 15:42 37.0 C 67 22 123/69 92 12/09/21 15:07 80 20 92 12/09/21 14:26 18 92 12/09/21 13:30 18 92 12/09/21 12:20 86 22 87 L 12/09/21 11:42 37.2 C 70 20 109/58 L 95 12/09/21 09:11 93 H 22 92 PG Care Time/CCT Total # of Minutes Spent Total Time Spent with Patient: Total time spent is greater than 50% in coordination of care (as documented) at patient's floor/unit and/or counseling patient: Coding Level of Care Code 37539 Subseq Hosp Care Lvl 2 Diagnoses Pneumonia due to 2019-nCoV U07.1; J12.82 Acute respiratory failure with hypoxia J96.01 Type 2 diabetes mellitus E11.9 BPH w urinary obs/LUTS N40.1; N13.8 Time Spent (min) 25
[2021-12-09] MEDS: TAMSULOSIN HCL 0.4 MG CAP PO SCH (21:19)
[2021-12-10] MEDS: POLYETHYLENE (MIRALAX) 17 GM PACK PO PRN (03:46)
[2021-12-10] MEDS: POT PHOSPHATE MONOBASIC W/ SOD TAB PO SCH ×4 (08:15→21:47)
[2021-12-10] MEDS: dexAMETHasone 10 MG in SYRINGE 0 ML IV SCH (08:15)
[2021-12-10] MEDS: CHOLECALCIFEROL 1,000 UNITS 25 MCG TAB PO SCH (08:15)
[2021-12-10] MEDS: ENOXAPARIN INJ 40 MG/0.4 ML SYR SQ SCH ×2 (08:16→21:47)
[2021-12-10] MEDS: FUROSEMIDE 40 MG/4 ML VIAL IV SCH (08:22)
[2021-12-10] MEDS: INSULIN ASPART PER UNIT SC SCH ×4 (08:25→21:47)
[2021-12-10 08:33] LABS: Basophils # (auto) 0.01 K/uL (0-0.2); Basophils % (auto) 0.1 %; Eosinophils # (auto) 0.21 K/uL (0-0.5); Eosinophils % (auto) 1.5 %; Hematocrit (blood only) 41.3 % (42-52); Hemoglobin 14.1 g/dL (14.0-18.0); Immature Granulocytes # (auto) 0.21 K/uL (0.00-0.02); Immature Granulocytes % (auto) 1.5 %; Lymphocytes # (auto) 0.84 K/uL (1.2-3.4); Lymphocytes % (auto) 6.2 %; Mean Corpuscular Hemoglobin 30.2 pg (25-34); Mean Corpuscular Hgb Conc 34.1 g/dL (32-36); Mean Corpuscular Volume 88.4 fL (80-100); Mean Platelet Volume 10.2 fL (7.4-10.4); Monocytes # (auto) 1.54 K/uL (0.11-0.59); Monocytes % (auto) 11.3 %; Neutrophils % (auto) 79.4 %; Platelet Count 326 K/uL (130-400); RDW Coefficient of Variation 13.2 % (11.5-14.5); RDW Standard Deviation 42.7 fL (36.4-46.3); Red Blood Count 4.67 M/uL (4.7-6.1); White Blood Count 13.61 K/uL (4.8-10.8)
[2021-12-10] MEDS: INSULIN GLARGINE SOLOSTAR 100 UNITS/ML 3 ML PEN SC SCH ×2 (09:05→21:47)
[2021-12-10] MEDS: INSULIN HUMAN NPH SC SCH (09:06)
[2021-12-10 09:20] LABS: Calcium 8.1 mg/dl (8.5-10.1); Potassium 3.3 mmol/L (3.5-5.1)
[2021-12-10 09:45] LABS: BUN Creatinine Ratio 29.8 (10-20); Creatinine Clr Calc Pharmacy 78.8 ml/min; Est GFR (African American) 97.2 ml/min; Est GFR (Non-African American) 83.9 ml/min
--- NOTE | 2021-12-10 10:19 | XRay Report ---
XR chest 1V portable CLINICAL HISTORY: covid COMPARISON STUDY: Chest radiograph and chest CT December 04, 2021. FINDINGS: No pneumothorax or pleural effusion is noted. There has been significant progression of alejandra ateral airspace opacities since prior exam. Cardiac size is normal. Mediastinal contours are unremark able. There is no evidence for pulmonary edema. IMPRESSION: Significant progression of bilateral airspace opacities consistent with viral pneumonia. ACT 112: Negative or not required by law. Electronically signed by: Sergio Story M.D. 12/10/2021 10:18 AM
--- NOTE | 2021-12-10 19:03 | Communication Note ---
Date of Service: December 10, 2021 This is a 76-year-old began with COVID symptoms on 11/22/2021. He was admitted to the hospital on day 9 of symptoms. He has progressively worsened and at this point family was contacted to discuss plan of care. Options were given to the patient's family as well as the patient regarding intubation, tracheostomy, PEG tube placement, transfer to other facility for long-term ventilation. At this point the patient and the Renae have elected not to proceed with endotracheal intubation and mechanical ventilation. I had a long discussion with the patient and his and also the stepchildren as well as the patient's daughter Cassidy Walsh in person. A Zoom session was established so the family could meet with patient. The family was in agreement to proceed with palliative care and not progress treatment. All questions were answered to the best of my ability and to the satisfaction of the family. Further discussion ensued regarding resuscitation status. At this point the patient would not like any cardiac compressions or other heroic measures. In the event that the patient decompensates, will focus on comfort care. The family was also in agreement with this. I spent a total of 2-1/2 hours with the patient, his , conferencing with the family. Coding Level of Care Code Critical Care 1st 30-74 mins Time Spent (min) 90 Comment 90 minutes of time was spent in medication with the patient and coordination of palliative
--- NOTE | 2021-12-10 20:45 | Hospitalist Progress Note ---
Date of Service December 10, 2021 Assessment & Plan (1) Pneumonia due to 2019-nCoV: Plan: Rapidly worsening 12/04/20 First symptoms: ~11/23/21 First tested: in our system 12/01/21 Vaccinated: No Admission date:12/01/21 Admission O2 requirement: 2L, Current O2- High flow NC and Cpap: ON BIPAP at time of visit. Patient is considering discussing goals of care. At time of interrogation, he was leaning towards intubation. Admission CRP: 9 on admission, down to 2.74 Dexamethasone course started: 12/01/21 Remdesivir started: 12/01/21 Tocilizumab given/baricitinib not started now out of time window Started Lasix 12/03 - remains euvolemic Antibiotics: procalcitonin negative (2) Acute respiratory failure with hypoxia: Plan: Secondary to COVID-19 as above Aim O2 sats > 90%. Continue to wean high flow as able. CXR negative for pneumothorax CT for PE performed due to worsening hypoxia, negative for pulmonary emboli Procalcitonin negative (3) Type 2 diabetes mellitus: Plan: Patient with well controlled Type II DM, last HgbA1C from 11/17/21 = 6.4. BSG 156-213 yesterday -Hold Glimepiride -Lantus 5u BID with ISS, will add insulin NPH 15 units to cover for dexamethasone use (4) BPH w urinary obs/LUTS: Plan: Chronic. Patient urinating without difficulty -Continue Flomax 0.4mg po daily Plan: VTE Prophylaxis - Lovenox 40mg SQ BID Diet - T2DM Disposition - COVID isolation precautions, continue on PCU Code - Full code on re-discussion with the patient and his 12/05 Admission and Anticipated Discharge Date Admission Date: December 01, 2021 Subjective Patient has deteriorated overnight as per nursing. Patient is on BIPAP and is showing understandment that he is not improving. Discussed goal of care with patient. Will have another discussion with ICU team. Review of Systems Review of Systems: All systems reviewed & are unremarkable except as noted in HPI & below Physical Exam Physical Exam: The patient appeared mild to moderate respiratory distress Vital signs as documented. Head exam is normocephalic atraumatic Neck is without JVD, thyromegaly, or carotid bruits. Lungs are coarse bilaterally in all lung lebron tachypnea Cardiac exam, Rhythm is regular.. No murmurs, rubs or gallops. Abdominal exam reveals normal bowel sounds, soft non tender, no masses Extremities are nonedematous and both pedal pulses are present Neurologic exam is alert and oriented, no focal loss of strength or sensation Skin is without bruises or rashes Psychologically is without concerns for anxiety or depression. Results & Data Results & Data ([facility]) Vital Signs (Past 12 Hours) Vital Signs Temp Pulse Pulse Resp BP Pulse Ox 12/10/21 20:03 37.6 C H 84 24 113/60 87 L 12/10/21 16:22 81 36 H 88 L 12/10/21 15:39 36.5 C 85 24 109/60 90 12/10/21 12:31 36.9 C 85 20 100/55 L 88 L 12/10/21 10:58 91 H 20 93 12/10/21 08:51 80 33 H 88 L PG Care Time/CCT Total # of Minutes Spent Total Time Spent with Patient: Total time spent is greater than 50% in coordination of care (as documented) at patient's floor/unit and/or counseling patient: Coding Level of Care Code 75204 Subseq Hosp Care Lvl 2 Diagnoses Pneumonia due to 2019-nCoV U07.1; J12.82 Acute respiratory failure with hypoxia J96.01 Type 2 diabetes mellitus E11.9 BPH w urinary obs/LUTS N40.1; N13.8 Time Spent (min) 25
[2021-12-10] MEDS: TAMSULOSIN HCL 0.4 MG CAP PO SCH (21:47)
[2021-12-10] MEDS ORDERED: POTASSIUM CHLORIDE CRTAB 20 MEQ TABCR PO STA (23:01)
[2021-12-11] MEDS: POLYETHYLENE (MIRALAX) 17 GM PACK PO PRN (00:10)
[2021-12-11] MEDS: CHOLECALCIFEROL 1,000 UNITS 25 MCG TAB PO SCH (08:37)
[2021-12-11] MEDS: ENOXAPARIN INJ 40 MG/0.4 ML SYR SQ SCH (08:38)
[2021-12-11] MEDS: FUROSEMIDE 40 MG/4 ML VIAL IV SCH (08:42)
[2021-12-11] MEDS: POT PHOSPHATE MONOBASIC W/ SOD TAB PO SCH ×2 (08:48→13:19)
[2021-12-11] MEDS: INSULIN HUMAN NPH SC SCH (08:50)
[2021-12-11] MEDS: INSULIN GLARGINE SOLOSTAR 100 UNITS/ML 3 ML PEN SC SCH ×2 (08:50→21:49)
[2021-12-11] MEDS: INSULIN ASPART PER UNIT SC SCH ×4 (08:51→21:24)
[2021-12-11 09:36] LABS: BUN Creatinine Ratio 34.2 (10-20); Calcium 8.4 mg/dl (8.5-10.1); Creatinine Clr Calc Pharmacy 87.9 ml/min; Est GFR (African American) 101.3 ml/min; Est GFR (Non-African American) 87.4 ml/min; Magnesium 1.9 mg/dl (1.7-2.4); Potassium 3.7 mmol/L (3.5-5.1)
[2021-12-11] MEDS ORDERED: ONDANSETRON INJ 2 MG/ML 2 ML VIAL IV PRN (14:46)
[2021-12-11] MEDS ORDERED: ONDANSETRON 4 MG OD TAB SL PRN (14:46)
[2021-12-11] MEDS ORDERED: LORazepam 0.5 MG/1 ML VIAL IV PRN (14:46)
[2021-12-11] MEDS ORDERED: LORazepam 0.5 MG TAB PO PRN (14:46)
[2021-12-11] MEDS ORDERED: MoRPHine SULFATE 5 MG/0.25 ML UDP PO PRN (14:48)
--- NOTE | 2021-12-11 16:40 | Pulmonology Progress Note ---
Date of Service December 11, 2021 Assessment & Plan (1) Pneumonia due to 2019-nCoV: (2) Acute respiratory failure with hypoxia: Plan: Attending: Dr. Reyes Impression: 76-year-old male with COVID with first symptoms 11/22/2021. Patient elects not to be intubated. He continues on high flow oxygen. 0 Recommendations: 1. COVID/ARDs: * Patient is maxed on oxygen supply with high flow oxygen at 55 L/min and FiO2 of 100% with overlay of oxime mask at 15 L * Discussion yesterday confirmed with family again today the patient does not want to be intubated * Will convert patient to comfort care per discussion with Renae, daughter Cassidy Walsh. * Continue supplemental oxygen to maintain comfort. * Patient started on morphine sulfate 2 mg IV as needed. Patient also started on lorazepam as needed. Anticipate converting to low-dose morphine drip of 2 mg/h starting tomorrow if patient continues to have shortness of breath and respiratory distress. * Long discussion with family today. Confirmed that the patient will be converted to comfort care and maintain palliative measures only. 2. Comfort care: * At this time family is understanding that patient will not show significant improvement. They also understand that intubating the patient will not pr ovide a cure for his COVID but would only provide time for additional healing which may take weeks or months. * Discussed with patient with yesterday that he would not want to be intubated and that if his "his time, it is his time". * Patient started on comfort measures only with PRN morphine and Ativan * Discussed plan to slowly introduce low-dose morphine drip if patient shows discomfort Thank you for including us in the care of this patient. We will officially sign off from a pulmonary perspective. Please contact us should you need any further assistance or have any further questions. A total of 70 minutes was spent in discussion with , daughter Cassidy Walsh, stepdaughter Andreina and with patient. Also coordinated transfer off COVID unit into a private negative pressure room for palliative care. Admission and Anticipated Discharge Date Admission Date: December 01, 2021 Subjective Attending: Dr. Reyes Patient seen and examined in room 217. Patient continues to have respiratory distress and increased hypoxia. He is now requiring 55 L/min with FiO2 of 100% with overlay of nonrebreather at 15 L/min to maintain saturation of 88 to 90%. Patient reports he is very very tired and wants to just stop treatment. Long talk with patient's Renae and stepdaughter Andreina as well as daughter Cassidy Walsh. At this time they would like to focus on palliation and make sure the patient does not suffer. They are agreeable to comfort care. We will plan on moving patient from the room 217 on the COVID unit to room 301 which is a negative pressure room. Patient denies any chest pain or tightness. He has no other acute decompensation. Review of Systems Review of Systems: All systems reviewed & are unremarkable except as noted in Subjective Physical Exam Physical Exam: GENERAL : Moderate distress NOSE: No evidence of epistaxis MOUTH: No lesions or candidiasis NECK: Supple LUNGS: Bibasilar crackles. No rhonchi. Mild cough with deep inspiration HEART: Regular, rate controlled ABDOMEN: Soft, NT, ND, BS Present EXTREMITIES: No LE edema, pedal pulses intact NEURO: A&OX3 Results & Data Results & Data ([facility]) Vital Signs (Past 12 Hours) Vital Signs Temp Pulse Pulse Pulse Resp BP Pulse Ox 12/11/21 15:14 85 92 12/11/21 11:10 37.7 C H 104 H 22 109/60 88 L 12/11/21 10:51 112 H 29 H 89 L 12/11/21 08:00 67 12/11/21 07:28 74 20 91 12/11/21 07:17 37.5 C 81 19 111/54 L 89 L 12/11/21 05:06 36.9 C 77 24 102/51 L 88 L Laboratory Results 12/10/21 06:54 12/11/21 07:53 Diagnostic Findings No further diagnostics PG Care Time/CCT Total # of Minutes Spent Total Time Spent with Patient: Total time spent is greater than 50% in coordination of care (as documented) at patient's floor/unit and/or counseling patient: 70 Coding Level of Care Code Critical Care 1st 30-74 mins Diagnoses Pneumonia due to 2019-nCoV U07.1; J12.82 Acute respiratory failure with hypoxia J96.01 Time Spent (min) 70 Comment Including care of patient and palliative discussion with family
--- NOTE | 2021-12-11 18:58 | Pulmonary Consultation ---
Date of Consultation December 10, 2021 Assessment & Plan (1) Acute respiratory failure with hypoxia: (2) Pneumonia due to 2019-nCoV: Attending: Dr. Reyes Impression: 76-year-old male admitted on 12/01/2021 with acute respiratory distress secondary to COVID/ARDS. Patient initiated on dexamethasone and remdesivir on admission. Patient has shown steady decline in respiratory status with increased oxygen requirements. Patient is to the point where consideration should be made for endotracheal intubation with mechanical ventilation. Discussion with patient and as well as family. Patient elects not to be intubated as he would not want to be mechanically ventilated. Patient also understands that cardiac compressions in the event of cardiopulmonary arrest would be futile with the absence of mechanical ventilation. Desires a CODE STATUS be changed to DNR/DNI with no heroics. Recommendations: 1. COVID/ARDs: * Patient with increased requirements for supplemental oxygen * Patient desires not to be endotracheally intubated with mechanical ventilation * At this time we will continue to provide supplemental oxygen to maintain saturations greater than 90% and focus on palliation if no improvement in patient's condition * Completed course of remdesivir. No benefit to baricitinib or tocilizumab at this time. * Tomorrow will be day 10 of dexamethasone. Patient was increased to dexamethasone 10 mg with no benefit. * Transition to palliative care as patient is not desire to have mechanical ventilation * Will follow patient and continue to treat conservatively as tolerated by patient 2. Acute respiratory failure with hypoxia: * Continue furosemide 40 mg IV daily to maintain negative fluid balance * Continue supplemental oxygen to maintain saturations greater than 90% * Patient already requiring high flow supplemental oxygen. Can alternate with BiPAP as tolerated. * Previous ABG with no evidence of hypercapnia but patient was alkalotic with a ABG pH is 7.51 * Without mechanical ventilation, will be difficult to manage patient if he becomes hypercapnic in addition to his hypoxia. Continue BiPAP therapy as tolerated and as needed 3. CODE STATUS: * Lengthy discussion with patient, , family. Patient desires to be a level V DNR/DNI I met with the family for a total of 90 minutes discussing coordination of palliative care and goals of care. Please refer to Dr. Reyes's addendum for further recommendations. History of Present Illness Reason for Consultation: Acute respiratory failure with hypoxia secondary to pneumonia with COVID 19 Requesting Physician: Dr. Agrawal Attending Physician: Jason Agrawal History of Present Illness Attending: Dr. Reyes This is a 76-year-old male with a past medical history including esophageal reflux, microalbuminuria, diabetes mellitus type 2, nephrolithiasis, vitamin D deficiency, BPH. The patient began having viral symptoms on 11/22/2021. He stated he just rundown and did not want to get checked. He developed issues with balance and began having mild diarrhea. His symptoms worsened until he agreed to be evaluated in the emergency department at which time he was found to be positive for COVID-19. Patient was admitted to the medical floor and initiated on isolation precautions. He was started on dexamethasone 6 mg IV daily as well as remdesivir for a total of 5 days. Patient was anticoagulated with Lovenox twice daily and continued on his home medications. Supplemental oxygen was initiated and patient initially did well. He then required BiPAP and did not tolerate the mask. Over the next couple of days, the patient began to progressively require more oxygenation. The pulmonary team was then consulted for further evaluation. Due to high levels of oxygen being required by high flow supplemental oxygen, family was contacted and discussion ensued regarding endotracheal intubation with mechanical ventilation. Patient was clear that he understood that without mechanical ventilation he most likely would not survive. In the presence of his , he stated that he would not want to be on the mechanical ventilator and that we should continue conservative treatment. He understood that if conservative treatment failed and he became uncomfortable, that palliative measures will be initiated. He and his stated understanding. Patient is unvaccinated for COVID Is a lifelong non-smoker Allergies Allergy/AdvReac Type Severity Reaction Status Date / Time bee venom protein (honey bee) Allergy Severe PASSED Verified 12/01/21 18:16 OUT, STOPPED HEART amoxicillin Allergy Mild Unknown Verified 12/01/21 18:16 Home Medications Medication Instructions Recorded Confirmed Type epinephrine 0.3 mg/0.3 mL 0.3 mg SUBCUT .COMPLEX #1 ea 05/03/20 12/01/21 Rx injection, auto-injector cholecalciferol (vitamin D3) 50 50 mcg PO QAM 09/05/21 12/01/21 History mcg (2,000 unit) tablet (Vitamin D3) glimepiride 2 mg tablet 1 mg PO BID 09/05/21 12/01/21 History lisinopril 2.5 mg tablet 2.5 mg PO QAM 09/05/21 12/01/21 History multivitamin 1 tab PO QAM 09/05/21 12/01/21 History naproxen sodium 220 mg capsule 220 mg PO BID PRN 09/05/21 12/01/21 History (Aleve) tamsulosin 0.4 mg capsule 0.4 mg PO HS 09/05/21 12/01/21 History ascorbic acid (vitamin C) 500 mg 500 mg PO QAM 11/26/21 12/01/21 History tablet (Vitamin C) azithromycin 250 mg tablet See Rx Instructions PO .COMPLEX #6 12/01/21 12/01/21 Rx (Zithromax Z-Zeferino) tab Patient History Medical History Dyslipidemia Enlarged prostate Hypertension Kidney stones PASSED ON OWN Lumbosacral radiculopathy at L5 Type 2 diabetes mellitus Hgb A1C 6.5 on 04/21/21 Surgical History History of anesthesia reaction DISORIENTATION POST OP X 1-2 WEEKS AFTER CYSTOSCOPY SX [facility] History of cystoscopy WITH STENT History of hernia repair S/P tonsillectomy Family History Father Pancreatic malignant neoplasm Malignant Pancreatic Neoplasm Mother Dementia Diabetes Denies family history of Colon cancer Ovarian cancer Prostate cancer Myocardial infarction Breast cancer Social History Smoking Status: Smoker, status unknown Second Hand Exposure: No; Hx Alcohol Use: No Hx Substance Use: No Preferred Language: Greenlandic Communication Ability: Effective 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 Beliefs That Will Affect Care: None marital status: Current Living Situation: Spouse Current Living Situation Comment: PT LIVES WITH SPOUSE, DAUGHTER current occupational status: retired How many Children do You have: 2 Feels Safe at Home: Yes Childhood Exposure to Second-Hand Smoke: No Dental Care, Regularly: Yes Physical Activity Frequency: Daily Seatbelt Use: always Sunscreen Use: No Assistive Devices: Oxygen - Continuous Review of Systems Review of Systems: All systems reviewed & are unremarkable except as noted in Subjective Physical Exam Physical Exam: GENERAL : Mild acute distress EYES: No icterus, gaze conjugate NOSE: No evidence of epistaxis MOUTH: No lesions or candidiasis NECK: Supple LUNGS: CTA B/L, no wheezes, rales or rhonchi but with diminished breath sounds bilaterally. Deep inspiration induces cough HEART: Regular, rate controlled ABDOMEN: Soft, NT, ND, BS Present EXTREMITIES: No LE edema, pedal pulses intact NEURO: A&OX3 Results & Data Results & Data ([facility]) Vital Signs (Past 12 Hours) Vital Signs Temp Pulse Pulse Pulse Resp BP Pulse Ox 12/11/21 15:14 85 92 12/11/21 11:10 37.7 C H 104 H 22 109/60 88 L 12/11/21 10:51 112 H 29 H 89 L 12/11/21 08:00 67 12/11/21 07:28 74 20 91 12/11/21 07:17 37.5 C 81 19 111/54 L 89 L Laboratory Results Lab results reviewed. Being managed by hospitalist team. Diagnostic Findings CHEST CTA for PULMONARY ARTERIES 12/04/2021 CT DOSE: 501.90 mGycm HISTORY: Short of breath. Covid pneumonia. TECHNIQUE: Multiaxial CT images of the chest were performed following the intravenous administration of contrast to evaluate the pulmonary arteries. Maximal intensity projection images were also obtained. A dose lowering technique was utilized adhering to the principles of ALARA. COMPARISON STUDY: None. FINDINGS: Limited views of the upper abdomen demonstrate normal spleen and adrenal glands. There is a 2.1 cm hypodense lesion within the right hepatic lobe. This favors a cyst. No pleural or pericardial effusions. The heart is top normal in size. Normal caliber esophagus. Mild mediastinal and bilateral hilar lymphadenopathy. This is likely reactive. Normal caliber thoracic aorta with no evidence for dissection. No filling defects within the pulmonary arteries to suggest a pulmonary embolus. No fractures within the visualized osseous structures. No pneumothorax. The central airways are patent. Multifocal groundglass airspace opacities demonstrating a peripheral predominance. There are also patchy areas of consolidation within the base of the lower lobes. This favors a moderate to severe multifocal viral pneumonia. IMPRESSION: 1. No evidence for pulmonary embolus. 2. Multifocal groundglass and consolidative airspace opacities seen within the lungs likely representing a moderate to severe viral pneumonia. 3. Mild mediastinal and bilateral hilar lymphadenopathy. This is likely reactive. ACT 112: Negative or not required by law. Electronically signed by: Danny Bazzi M.D. 12/04/2021 12:32 PM PG Care Time/CCT Total # of Minutes Spent Total Time Spent with Patient: 20Total time spent is greater than 50% in coordination of care (as documented) at patient's floor/unit and/or counseling patient:90 please see communication note 12/10/2021 at 18:58 Coding Level of Care Code Critical Care 1st 30-74 mins Diagnoses Acute respiratory failure with hypoxia J96.01 Pneumonia due to 2019-nCoV U07.1; J12.82 Time Spent (min) 90
[2021-12-11] MEDS: MoRPHine SULFATE 2 MG/ML CARP IV PRN (19:30)
[2021-12-11] MEDS: TAMSULOSIN HCL 0.4 MG CAP PO SCH (21:25)
--- NOTE | 2021-12-11 22:08 | Hospitalist Progress Note ---
Date of Service December 11, 2021 Assessment & Plan (1) Pneumonia due to 2019-nCoV: Plan: Rapidly worsening 12/04/20 First symptoms: ~11/23/21 First tested: in our system 12/01/21 Vaccinated: No Admission date:12/01/21 Admission O2 requirement: on oxymask and high flow nasal cannula. Admission CRP: 9 on admission, down to 2.74 Dexamethasone course started: 12/01/21 Remdesivir started: 12/01/21 Tocilizumab given/baricitinib not started now out of time window Started Lasix 12/03 - remains euvolemic Antibiotics: procalcitonin negative Transitioned to comfort measures. (2) Acute respiratory failure with hypoxia: Plan: Secondary to COVID-19 as above Aim O2 sats > 90%. Continue to wean high flow as able. CXR negative for pneumothorax CT for PE performed due to worsening hypoxia, negative for pulmonary emboli Procalcitonin negative (3) Type 2 diabetes mellitus: Plan: Patient with well controlled Type II DM, last HgbA1C from 11/17/21 = 6.4. BSG 156-213 yesterday -Hold Glimepiride -Lantus 5u BID with ISS, will add insulin NPH 15 units to cover for dexamethasone use (4) BPH w urinary obs/LUTS: Plan: Chronic. Patient urinating without difficulty -Continue Flomax 0.4mg po daily Plan: VTE Prophylaxis - Lovenox 40mg SQ BID Diet - T2DM Disposition - COVID isolation precautions, continue on PCU Code - Full code on re-discussion with the patient and his 12/05 Admission and Anticipated Discharge Date Admission Date: December 01, 2021 Subjective Patient is lethargic. Review of Systems Review of Systems: All systems reviewed & are unremarkable except as noted in HPI & below Physical Exam Physical Exam: The patient appeared mild to moderate respiratory distress Vital signs as documented. Head exam is normocephalic atraumatic Neck is without JVD, thyromegaly, or carotid bruits. Lungs are coarse bilaterally in all lung lebron tachypnea Cardiac exam, Rhythm is regular.. No murmurs, rubs or gallops. Abdominal exam reveals normal bowel sounds, soft non tender, no masses Extremities are nonedematous and both pedal pulses are present Neurologic exam is alert and oriented, no focal loss of strength or sensation Skin is without bruises or rashes Psychologically is without concerns for anxiety or depression. Results & Data Results & Data ([facility]) Vital Signs (Past 12 Hours) Vital Signs Temp Pulse Pulse Resp BP Pulse Ox 12/11/21 15:14 85 92 12/11/21 11:10 37.7 C H 104 H 22 109/60 88 L 12/11/21 10:51 112 H 29 H 89 L PG Care Time/CCT Total # of Minutes Spent Total Time Spent with Patient: Total time spent is greater than 50% in coordination of care (as documented) at patient's floor/unit and/or counseling patient: Coding Level of Care Code 02414 Subseq Hosp Care Lvl 2 Diagnoses Pneumonia due to 2019-nCoV U07.1; J12.82 Acute respiratory failure with hypoxia J96.01 Type 2 diabetes mellitus E11.9 BPH w urinary obs/LUTS N40.1; N13.8
[2021-12-12] MEDS: MoRPHine SULFATE 2 MG/ML CARP IV PRN ×3 (02:41→17:55)
[2021-12-12] MEDS: INSULIN ASPART PER UNIT SC SCH ×4 (10:09→21:59)
[2021-12-12] MEDS: FUROSEMIDE 40 MG/4 ML VIAL IV SCH (10:10)
[2021-12-12] MEDS: INSULIN HUMAN NPH SC SCH (10:10)
[2021-12-12] MEDS: INSULIN GLARGINE SOLOSTAR 100 UNITS/ML 3 ML PEN SC SCH ×2 (10:11→21:55)
--- NOTE | 2021-12-12 14:14 | Pulmonology Progress Note ---
Date of Service December 12, 2021 Assessment & Plan (1) Acute respiratory failure with hypoxia: (2) Pneumonia due to 2019-nCoV: Plan: Attending: Dr. Reyes Impression: 76-year-old male admitted on 12/01/2021 with acute respiratory distress secondary to COVID/ARDS. Patient initiated on dexamethasone and remdesivir on admission. Patient has shown steady decline in respiratory status with increased oxygen requirements. Patient is to the point where consideration was discussed with patient and family. They have elected not to pursue endotracheal intubation with mechanical ventilation. Patient elects not to be intubated as he would not want to be mechanically ventilated. Patient was moved to room 301 for comfort care measures. Reiterated with Renae that she may visit between 2 PM and 6 PM but other visitors are not permitted as patient is still considered to be shedding virus. Recommendations: 1. COVID/ARDs: * Patient continues to require 100% FiO2. He is now desaturating into the 70s with light activity. * Patient desires not to be endotracheally intubated with mechanical ventilation * At this time we will continue to provide supplemental oxygen to maintain saturations greater than 90% and focus on palliation if no improvement in [place]'s condition * Completed course of remdesivir. No benefit to baricitinib or tocilizumab at this time. * Today is day 10 of dexamethasone. Patient was increased to dexamethasone 10 mg with no benefit. We will discontinue steroids at this time. * Transition to palliative care as patient does not desire to have mechanical ventilation * Will follow patient and continue to treat conservatively as tolerated by patient 2. Acute respiratory failure with hypoxia: * Continue furosemide 40 mg IV PRN to comfort * Continue supplemental oxygen to maintain saturations greater than 90% * Patient already requiring high flow supplemental oxygen. Can alternate with BiPAP as tolerated. * Previous ABG with no evidence of hypercapnia but patient was alkalotic with a ABG pH is 7.51 * Without mechanical ventilation, will be difficult to manage patient if he becomes hypercapnic in addition to his hypoxia. Continue BiPAP therapy as tolerated and as needed 3. CODE STATUS: * Lengthy discussion with patient, , family. Patient desires to be a level V DNR/DNI. Transition to comfort care only. 4. Diabetes mellitus: * Questioned as to whether insulin should be discontinued or continued. Would recommend continuing with insulin at least NovoLog sliding scale so the patient does not develop hyperglycemia and diabetic ketoacidosis. His most recent hemoglobin A1c was 6.4%. We will continue with BSG's before meals and with bedtime. Discussed with Dr. Agrawal of the primary team. Discussion with patient's Renae today. She is praying for a miracle and that Mr. Sparrow will survive. At this point she is demanding 5 days of doxycycline to see if this helps. I explained that antibiotics do not help a viral process but will check a repeat procalcitonin to look for guidance regarding antibiotic treatment. She is in agreement that if procalcitonin is negative that we will not proceed with antibiotics. She also asked if it was advisable that tawny Rod come up from [place]. I advised her that in patients of this age group with severe respiratory failure that things can turn around quickly and patient may be unresponsive. I suggested that family members that wanted to be in the area should come up to support her. I also confirmed that at this time the visitation policy at [facility] does not allow patients to be in the COVID room with a COVID-positive patient. An exception has been made for her as the of the patient with expectation that he will succumb to hypoxia secondary to COVID and . She was understanding. She stated that all questions were answered to her satisfaction. I did advise her that if she had further questions to feel free to call in and we will discuss them. I spent a total of 45 minutes with the patient and in discussion with the patient's discussing goals of care. At this time, the pulmonary service will sign off. I did discuss treatment plan with Dr. Agrawal. He stated that Dr. Almaguer will resume care tomorrow. Palliative care continues to be the goal at this time. Admission and Anticipated Discharge Date Admission Date: December 01, 2021 Subjective Attending: Dr. Reyes This is a 76-year-old male who presented with COVID-19 with ARDS. He was to the point 2 days ago that he needed to be intubated. Family discussion was held and it was determined that he would not want to be intubated and would like to be kept comfortable. Yesterday the patient was transferred from [facility] to room 301 with the goal of comfort care. Labs were stopped and most medications were stopped. He was continued on insulin to avoid hyper glycemia and DKA. Hemoglobin A1c is 6.4%. Patient was also continued on furosemide to avoid pulmonary edema. The furosemide was stopped this morning by the primary team. Patient seen and examined in room 301. He appears ill and fatigued. He is not using accessory muscles but he is desaturating down into the 70s with activity. He is currently on high flow supplemental oxygen with overlying Oxymask at 10 to 15 L. He denies any chest pain or tightness. He has no fever. He does report some sweats this morning. He has no new cough or sputum production. He received 1 dose of morphine sulfate IV this morning for discomfort but otherwise he is refusing as needed meds for respiratory distress and air hunger. Review of Systems Review of Systems: All systems reviewed & are unremarkable except as noted in Subjective Physical Exam Physical Exam: GENERAL : No acute distress. Patient looks ill. Patient looks fatigued. EYES: No icterus, gaze conjugate NOSE: No evidence of epistaxis. High flow oxygen nasal cannula is in place. Overlying Oxymask is also in place. MOUTH: No lesions or candidiasis NECK: Supple LUNGS: Fine crackles at the bases. HEART: Regular, rate controlled ABDOMEN: Soft, NT, ND, BS Present EXTREMITIES: No LE edema, pedal pulses intact NEURO: A&OX3 Results & Data Results & Data ([facility]) Vital Signs (Past 12 Hours) Vital Signs Pulse Resp Pulse Ox 12/12/21 08:14 91 H 28 H 12/12/21 03:44 81 22 91 Critical Care Results & Data Vital Signs (Past 12 Hours) Vital Signs Pulse Resp Pulse Ox 12/12/21 08:14 91 H 28 H 12/12/21 03:44 81 22 91 Lab & Micro Results (Past 24 Hours) No Data to Display No Data to Display No Data to Display I & O Totals 24 Hours 12/11/21 12/12/21 12/13/21 06:59 06:59 06:59 Intake Total 480 / 480 Output Total 1750 / 1750 1900 / 1900 Balance -1270 / -1270 -1900 / -1900 Cumulative 12/01/21 14:45 thru 12/11/21 18:16 Intake Total 5130 Output Total 71149 Balance -86025 RT Ventilator Mngmt (Last Documented) Ventilator Ordered Settings Respiratory Rate 28 12/12/21 08:14 Fraction of Inspired Oxygen 100 12/12/21 08:14 Ventilator - PT Measurements Respiratory Rate 28 PG Care Time/CCT Total # of Minutes Spent Total Time Spent with Patient: Total time spent is greater than 50% in coordination of care (as documented) at patient's floor/unit and/or counseling patient: Coding Level of Care Code Critical Care 1st 30-74 mins Diagnoses Acute respiratory failure with hypoxia J96.01 Pneumonia due to 2019-nCoV U07.1; J12.82 Time Spent (min) 45 Comment 45 minutes including end-of-life care discussion with patient and with family.
--- NOTE | 2021-12-12 20:10 | Hospitalist Progress Note ---
Date of Service December 12, 2021 Assessment & Plan (1) Pneumonia due to 2019-nCoV: Plan: Rapidly worsening 12/04/20 First symptoms: ~11/23/21 First tested: in our system 12/01/21 Vaccinated: No Admission date:12/01/21 Admission O2 requirement: on oxymask and high flow nasal cannula. Admission CRP: 9 on admission, down to 2.74 Dexamethasone course started: 12/01/21 Remdesivir started: 12/01/21 Tocilizumab given/baricitinib not started now out of time window Started Lasix 12/03 - remains euvolemic Antibiotics: procalcitonin negative Transitioned to comfort measures. (2) Acute respiratory failure with hypoxia: Plan: Secondary to COVID-19 as above Aim O2 sats > 90%. Continue to wean high flow as able. CXR negative for pneumothorax CT for PE performed due to worsening hypoxia, negative for pulmonary emboli Procalcitonin negative transitioned to comfort. Pulmonary signed off. (3) Type 2 diabetes mellitus: Plan: Patient with well controlled Type II DM, last HgbA1C from 11/17/21 = 6.4. BSG 156-213 yesterday -Hold Glimepiride -Lantus 5u BID with ISS, will add insulin NPH 15 units to cover for dexamethasone use (4) BPH w urinary obs/LUTS: Plan: Chronic. Patient urinating without difficulty -Continue Flomax 0.4mg po daily Plan: VTE Prophylaxis - Lovenox 40mg SQ BID Diet - T2DM Disposition - COVID isolation precautions, continue on PCU Code - Full code on re-discussion with the patient and his 12/05 Admission and Anticipated Discharge Date Admission Date: December 01, 2021 Subjective Patient appears weak. Review of Systems Review of Systems: All systems reviewed & are unremarkable except as noted in HPI & below Physical Exam Physical Exam: Vital signs as documented. Head exam is normocephalic atraumatic Neck is without JVD, thyromegaly, or carotid bruits. Lungs are coarse bilaterally in all lung lebron tachypnea Cardiac exam, Rhythm is regular.. No murmurs, rubs or gallops. Abdominal exam reveals normal bowel sounds, soft non tender, no masses Extremities are nonedematous and both pedal pulses are present Skin is without bruises or rashes Results & Data Results & Data ([facility]) Vital Signs (Past 12 Hours) Vital Signs Pulse Resp Pulse Ox 12/12/21 19:44 83 20 95 12/12/21 08:14 91 H 28 H PG Care Time/CCT Total # of Minutes Spent Total Time Spent with Patient: Total time spent is greater than 50% in coordination of care (as documented) at patient's floor/unit and/or counseling patient: Coding Level of Care Code 38588 Subseq Hosp Care Lvl 2 Diagnoses Pneumonia due to 2019-nCoV U07.1; J12.82 Acute respiratory failure with hypoxia J96.01 Type 2 diabetes mellitus E11.9 BPH w urinary obs/LUTS N40.1; N13.8
[2021-12-12] MEDS: TAMSULOSIN HCL 0.4 MG CAP PO SCH (21:55)
[2021-12-13] MEDS: MoRPHine SULFATE 2 MG/ML CARP IV PRN ×3 (05:07→22:47)
[2021-12-13] MEDS: FUROSEMIDE 40 MG/4 ML VIAL IV SCH (09:57)
[2021-12-13] MEDS: INSULIN HUMAN NPH SC SCH (10:06)
[2021-12-13] MEDS: INSULIN ASPART PER UNIT SC SCH ×4 (10:36→22:42)
[2021-12-13] MEDS: INSULIN GLARGINE SOLOSTAR 100 UNITS/ML 3 ML PEN SC SCH ×2 (10:37→22:42)
[2021-12-13 12:02] LABS: BUN Creatinine Ratio 30.8 (10-20); Calcium 8.3 mg/dl (8.5-10.1); Creatinine Clr Calc Pharmacy 80.9 ml/min; Est GFR (African American) 100.2 ml/min; Est GFR (Non-African American) 86.5 ml/min; Potassium 3.9 mmol/L (3.5-5.1)
--- NOTE | 2021-12-13 12:25 | Hospitalist Progress Note ---
Date of Service December 13, 2021 Assessment & Plan (1) Pneumonia due to 2019-nCoV: Plan: Summary and goals of care: Patient admitted 12/01/2020 for COVID-pneumonia with symptoms that began 11/22, patient completed 10 days of dexamethasone and remdesivir however has had severe pulmonary disease without substantial clinical improvement. Goals of care discussions have been had with patient and family by several care members, following prolonged discussion between patient, , family and Pulmonary decision was made to proceed to DNR/DNI level 5 and comfort measures. had reported that she was praying for a miracle, and that she wanted to try antibiotics such as doxycycline. This was discussed with her that antibiotics do not help viral infections, but her Pro-Ranjeet was checked to look for evidence of underlying superimposed pneumonia; this was normal. Various family members in the area. Patient will not be able to be downgraded from isolation until 12/22/2021 (21 days from initial, 12/01/2020), until that time an exception has been made for the patient's to visit her . Other family members are unable to visit at this time as patient is still under COVID isolation. Respiratory failure with hypoxia 2/2 COVID-pneumonia Rapidly worsening 12/04/20 First symptoms: ~11/23/21 First tested: in our system 12/01/21 Unvaccinated Admission date:12/01/21 Admission O2 requirement: on oxymask and high flow nasal cannula. Admission CRP: 9 on admission, down to 2.74 Dexamethasone course started: 12/01/21 Remdesivir started: 12/01/21 Tocilizumab given/baricitinib not started now out of time window Started Lasix 12/03, continue Lasix 40 mg IV every morning Transitioned to comfort measures. Additional BMP to assess renal function obtained at request of family member to help facilitate discussion this afternoon. creatinine remains normal 0.78. (2) Acute respiratory failure with hypoxia: Plan: Secondary to COVID-19 as above Aim O2 sats > 90%. Continue to wean high flow as able. CXR negative for pneumothorax CTA negative for pulmonary emboli Procalcitonin negative transitioned to comfort. Pulmonary signed off. (3) Type 2 diabetes mellitus: Plan: Patient with well controlled Type II DM, last HgbA1C from 11/17/21 = 6.4. BSG 156-213 yesterday -Hold Glimepiride -Lantus 5u BID with ISS NPH discontinued as dexamethasone completed (4) BPH w urinary obs/LUTS: Plan: Chronic. 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 Admission and Anticipated Discharge Date Admission Date: December 01, 2021 Subjective Seen at the bedside this morning. Family anticipated to come to visit this afternoon. Patient reports she feels "just tired ". O2 sat 90-91%, patient reports he does not feel any clinical change from yesterday. Denies pain. No fever/chills. Patient's to bring in some food for comfort for patient from home, additional family discussion/update pending her visit. Review of Systems Review of Systems: All systems reviewed & are unremarkable except as noted in Subjective Physical Exam Physical Exam: General: No acute distress, alert and oriented to name and place, appears fatigued, chronically ill HEENT: Atraumatic, normocephalic. Visual acuity and hearing grossly intact. Pulm: Bibasilar crackles without wheezes/rales/rhonchi and symmetrical chest rise. Symmetrical chest rise. No increase work of breathing. No respiratory distress. Cardiac: RRR, -mrg. Radial pulses intact and symmetrical. Extremities: Grossly intact, warm, dry Results & Data Results & Data ([facility]) Vital Signs (Past 12 Hours) Vital Signs Pulse Resp Pulse Ox 12/13/21 11:00 91 H 22 90 12/13/21 02:20 89 22 92 PG Care Time/CCT Total # of Minutes Spent Total Time Spent with Patient: Total time spent is greater than 50% in coordination of care (as documented) at patient's floor/unit and/or counseling patient: Coding Level of Care Code 78111 Subseq Hosp Care Lvl 2 Diagnoses Pneumonia due to 2019-nCoV U07.1; J12.82 Acute respiratory failure with hypoxia J96.01 Type 2 diabetes mellitus E11.9 BPH w urinary obs/LUTS N40.1; N13.8
[2021-12-13] MEDS: TAMSULOSIN HCL 0.4 MG CAP PO SCH (22:49)
[2021-12-14] MEDS: FUROSEMIDE 40 MG/4 ML VIAL IV SCH ×2 (08:30→09:51)
[2021-12-14] MEDS: MoRPHine SULFATE 2 MG/ML CARP IV PRN (08:48)
[2021-12-14] MEDS: INSULIN ASPART PER UNIT SC SCH ×4 (09:44→22:19)
[2021-12-14] MEDS: INSULIN GLARGINE SOLOSTAR 100 UNITS/ML 3 ML PEN SC SCH ×2 (09:45→22:19)
--- NOTE | 2021-12-14 12:26 | Hospitalist Progress Note ---
Date of Service December 14, 2021 Assessment & Plan (1) Pneumonia due to 2019-nCoV: Plan: Summary and goals of care: Patient admitted 12/01/2020 for COVID-pneumonia with symptoms that began 11/22, patient completed 10 days of dexamethasone and remdesivir however has had severe pulmonary disease without substantial clinical improvement. Goals of care discussions have been had with patient and family by several care members, following prolonged discussion between patient, , family and Pulmonary decision was made to proceed to DNR/DNI level 5 and comfort measures. had reported that she was praying for a miracle, and that she wanted to try antibiotics such as doxycycline. This was discussed with her that antibiotics do not help viral infections, but her Pro-Ranjeet was checked to look for evidence of underlying superimposed pneumonia; this was normal. Various family members in the area. Patient will not be able to be downgraded from isolation until 12/22/2021 (21 days from initial, 12/01/2020), until that time an exception has been made for the patient's to visit her . Other family members are unable to visit at this time as patient is still under COVID isolation. 11/13: Discussed that he continues to remain severely ill with severe lung damage due to COVID could easily decompensate and passed quickly. Expresses that she understands this, and while she understands he could pass at any moment and would still like him treated for comfort she is still praying for a miracle. She has not thought about what she would do if he neither improved nor decompensated, and continued at his current oxygen requirements/severe pulmonary impairment. Is not sure if she would want to try moving to lower oxygen to support to see if he could return home for hospice goals knowing he might decompensate versus maintaining high flow oxygen at a long-term facility. She reports she has not thought about what she would do if he were to continue in his current state without clinical change, but will think about it. She would not like to make any changes to his oxygen at least until he is off COVID precautions and can see other family. Respiratory failure with hypoxia 2/2 COVID-pneumonia Rapidly worsening 12/04/20 First symptoms: ~11/23/21 First tested: in our system 12/01/21 Unvaccinated Admission date:12/01/21 Admission O2 requirement: on oxymask and high flow nasal cannula. Admission CRP: 9 on admission, down to 2.74 Dexamethasone course started: 12/01/21 Remdesivir started: 12/01/21 Tocilizumab given/baricitinib not started now out of time window Started Lasix 12/03, continue Lasix 40 mg IV every morning Transitioned to comfort measures. (2) Acute respiratory failure with hypoxia: Plan: Secondary to COVID-19 as above Aim O2 sats > 90%. Continue to wean high flow as able. CXR negative for pneumothorax CTA negative for pulmonary emboli Procalcitonin negative transitioned to comfort. Pulmonary signed off. (3) Type 2 diabetes mellitus: Plan: Patient with well controlled Type II DM, last HgbA1C from 11/17/21 = 6.4. BSG 156-213 yesterday -Hold Glimepiride -Lantus 5u BID with ISS NPH discontinued as dexamethasone completed (4) BPH w urinary obs/LUTS: Plan: Chronic. 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 Patient received 2 doses of morphine overnight, 1 episode of hypoxia with anxiety and shortness of breath alleviated following morphine with improvement of sats to 90% following this. Continues on high flow nasal cannula and oxygen mask, patient reports he feels similar to prior but "so tired ". Discussed overnight events with at bedside. Discussed that he continues to remain severely ill with severe lung damage due to COVID could easily decompensate and passed quickly. Expresses that she understands this, and while she understands he could pass at any moment and would still like him treated for comfort she is still praying for a miracle. She has not thought about what she would do if he neither improved nor decompensated, and continued at his current oxygen requirements/severe pulmonary impairment. Is not sure if she would want to try moving to lower oxygen to support to see if he could return home for hospice goals versus maintaining high flow oxygen at a long-term facility. She reports she has not thought about what she would do if he were to continue in his current state without clinical kanu nge, but will think about it. Support provided at bedside, no other questions or concerns. Review of Systems Review of Systems: Patient denies pain, nausea, vomiting at time of assessment. Endorses fatigue, intermittent shortness of breath not currently present at time of bedside exam. Physical Exam Physical Exam: General: alert and oriented to name and place, appears fatigued, chronically ill HEENT: Atraumatic, normocephalic. Visual acuity and hearing grossly intact. Pulm: Symmetrical chest rise. No increase work of breathing. No respiratory distress. Cardiac: Radial pulses intact and symmetrical. Extremities: Grossly intact, warm, dry Results & Data Results & Data ([facility]) Vital Signs (Past 12 Hours) Vital Signs Temp Pulse Resp BP Pulse Ox 12/14/21 11:07 83 18 88 L 12/14/21 08:15 95 H 15 84 L 12/14/21 08:14 37.2 C 91 H 16 104/67 84 L 12/14/21 03:28 14 88 L PG Care Time/CCT Total # of Minutes Spent Total Time Spent with Patient: Total time spent is greater than 50% in coordination of care (as documented) at patient's floor/unit and/or counseling patient: Coding Level of Care Code 12691 Subseq Hosp Care Lvl 2 Diagnoses Pneumonia due to 2019-nCoV U07.1; J12.82 Acute respiratory failure with hypoxia J96.01 Type 2 diabetes mellitus E11.9 BPH w urinary obs/LUTS N40.1; N13.8
[2021-12-14] MEDS ORDERED: MoRPHine SULFATE 2 MG/ML CARP IV PRN (12:29)
[2021-12-14] MEDS: MoRPHine SULFATE 5 MG/0.25 ML UDP PO PRN ×2 (12:44→15:29)
[2021-12-14] MEDS ORDERED: ATROPINE SULFATE 1% OP SOLN 5 ML BTL PO PRN (15:13)
[2021-12-14] MEDS ORDERED: STAT IV Infusion **Titration per Protocol STA (15:13)
[2021-12-14] MEDS ORDERED: MoRPHine SULF/NSS 250 MG/250 ML BTL IV SCH (15:15)
[2021-12-14] MEDS ORDERED: SCOPOLAMINE 1 MG TDSY TD PRN (15:33)
[2021-12-14] MEDS ORDERED: CHECK SCOPOLAMINE PATCH PLACEMENT PRN (16:00)
[2021-12-14] MEDS: ACETAMINOPHEN 325 MG TAB PO PRN (21:15)
[2021-12-14] MEDS: TAMSULOSIN HCL 0.4 MG CAP PO SCH (22:20)
[2021-12-15] MEDS: SODIUM CHLORIDE 0.9% 1000ML 1,000 ML IV SCH
--- NOTE | 2021-12-15 12:47 | Hospitalist Progress Note ---
Date of Service December 15, 2021 Assessment & Plan (1) Pneumonia due to 2019-nCoV: Plan: Summary and goals of care: Patient admitted 12/01/2020 for COVID-pneumonia with symptoms that began 11/22, patient completed 10 days of dexamethasone and remdesivir however has had severe pulmonary disease without substantial clinical improvement. Goals of care discussions have been had with patient and family by several care members, following prolonged discussion between patient, , family and Pulmonary decision was made to proceed to DNR/DNI level 5 and comfort measures. had reported that she was praying for a miracle, and that she wanted to try antibiotics such as doxycycline. This was discussed with her that antibiotics do not help viral infections, but her Pro-Ranjeet was checked to look for evidence of underlying superimposed pneumonia; this was normal. Various family members in the area. Patient will not be able to be downgraded from isolation until 12/22/2021 (21 days from initial, 12/01/2020), until that time an exception has been made for the patient's to visit her . Other family members are unable to visit at this time as patient is still under COVID isolation. 12/14: Discussed that he continues to remain severely ill with severe lung damage due to COVID could easily decompensate and passed quickly. Expresses that she understands this, and while she understands he could pass at any moment and would still like him treated for comfort she is still praying for a miracle. She has not thought about what she would do if he neither improved nor decompensated, and continued at his current oxygen requirements/severe pulmonary impairment. Is not sure if she would want to try moving to lower oxygen to support to see if he could return home for hospice goals knowing he might decompensate versus maintaining high flow oxygen at a long-term facility. She reports she has not thought about what she would do if he were to continue in his current state without clinical change, but will think about it. She would not like to make any changes to his oxygen at least until he is off COVID precautions and can see other family. 12/15: Patient seen at bedside. Reports he was okay overnight, is a little short of breath this morning. no questions or concerns at time of bedside visit. Reported that he would like to have the oxymask on or nearby as he is afraid of feeling like he did yesterday when his shortness of breath suddenly worsened. UPdated by phone. Support provided, reviewed with nursing staff. Objectively with signs of respiratory distress (tachypnea, shallow breathing), subjectively doing well on drip. Continue HOME STAGER care, morphine gtt, ativan PRN. He remains critically ill and hypoxic and unstable for transfer/inappropriate for home hospice at this time. Comfort Measures Only Respiratory failure with hypoxia 2/2 COVID-pneumonia Rapidly worsening 12/04/20 First symptoms: ~11/23/21 First tested: in our system 12/01/21 Unvaccinated Admission date:12/01/21 Admission O2 requirement: on oxymask and high flow nasal cannula. Admission CRP: 9 on admission, down to 2.74 Dexamethasone course started: 12/01/21 Remdesivir started: 12/01/21 Tocilizumab given/baricitinib not started now out of time window Started Lasix 12/03, continue Lasix 40 mg IV every morning Transitioned to comfort measures. (2) Acute respiratory failure with hypoxia: Plan: Secondary to COVID-19 as above Aim O2 sats > 90%. Continue to wean high flow as able. CXR negative for pneumothorax CTA negative for pulmonary emboli Procalcitonin negative transitioned to comfort. Pulmonary signed off. (3) Type 2 diabetes mellitus: Plan: Patient with well controlled Type II DM, last HgbA1C from 11/17/21 = 6.4. BSG 156-213 yesterday -Hold Glimepiride -Lantus 5u BID with ISS NPH discontinued as dexamethasone completed (4) BPH w urinary obs/LUTS: Plan: Chronic. Patient urinating without difficulty -Continue Flomax 0.4mg po daily - Comfort Care (5) Comfort measures only status: Plan: - As above. morphine gtt, ativan PRN. Scopalamine and atropine available for end of life secretions, recommend scopalamine early or transition to atropine if late/ineffective. Plan: Diet - T2DM Disposition - COVID isolation precautions, HOME STAGER Code Status: HOME STAGER, DNR/DNI see above Admission and Anticipated Discharge Date Admission Date: December 01, 2021 Subjective Patient is seen at the bedside this morning. He arouses transiently, and endorses some shortness of breath but otherwise okay at bedside. No questions or concerns. Review of Systems Review of Systems: Negative except as noted above. Denies pain. Physical Exam Physical Exam: General: Somnolent, arouses to touch/voice. HEENT: Atraumatic, normocephalic. Visual acuity and hearing grossly intact. Pulm: Tachypneic with shallow breathing. Some accessory muscle use of breathing. Cardiac: Radial pulses intact and symmetrical. Extremities: Grossly intact, warm, dry PG Care Time/CCT Total # of Minutes Spent Total Time Spent with Patient: Total time spent is greater than 50% in coordination of care (as documented) at patient's floor/unit and/or counseling patient: Coding Level of Care Code 88099 Subseq Hosp Care Lvl 2 Diagnoses Pneumonia due to 2019-nCoV U07.1; J12.82 Acute respiratory failure with hypoxia J96.01 Type 2 diabetes mellitus E11.9 BPH w urinary obs/LUTS N40.1; N13.8 Comfort measures only status Z51.5
[2021-12-15] MEDS: TAMSULOSIN HCL 0.4 MG CAP PO SCH (19:06)
[2021-12-16] MEDS: SODIUM CHLORIDE 0.9% 1000ML 1,000 ML IV SCH (02:10)
--- NOTE | 2021-12-16 10:42 | Discharge Summary ---
Date of Service December 16, 2021 Admission HPI Per Admitting Provider Genaro Sparrow is a 76yo male with history of HTN, DM and renal stones presenting with Covid-19, ambulatory hypoxemia. Patient reports becoming ill on November 23 with profound weakness and fatigue. He also reports episodes of confusion - having difficulty balancing his checkbook and some forgetfulness around the home. He has had some mild cough and congestion as well as intermittent fevers. He had some mild diarrhea. Patient denies SOB, chest discomfort, although he does have some chest pain associated with coughing. No additional complaints at this time. Patient is not vaccinated against Covid-19. His daughter and are presently ill with Covid as well. Patient has been monitoring his pulse ox at home and has been in the 80's. In the ER his saturations were 90% on room air and decreased to low 80's with ambulation. He is presently on 2L by NC and saturating 95% No additional complaints at this time. ER Course: Dexamethasone 6mg IV, NSS x 500mL, Remdesivir 200mg Admission Exam Per Admitting Provider General: patient resting comfortably, NAD, non-toxic in appearance, AA&O x 4 Skin: warm, dry, intact, no rashes or lesions HEENT: NC/AT, PERRL, EOMI, anicteric sclera, conjunctiva without injection, external ear normal to inspection and nontender, nares patent, moist mucus membranes, dentition intact, no oropharyngeal lesions, neck supple, trachea midline, no LAD, no thyromegaly, no JVD Heart: +S1/S2, regular, no m/r/g Lungs: equal air entry bilaterally, no rales/rhonchi/wheezes Abd: +BS, soft, NT/ND, no masses/organomegaly/ascites Ext: warm, 2+ pulses in UE/LE bilaterally, no clubbing/cyanosis or edema Neuro: nonfocal, patient AA&O x 4, speech intact, no facial droop, moving all extremities on command with equal strength 5/5 Principal Diagnosis Hypoxic respiratory failure 2/2 COVID-pneumonia Discharge Exam Patient . On 12/16/2021 at 10:33 AM Pupils fixed and dilated, no corneal response to saline No cardiac activity on auscultation, carotid and radial pulse not appreciated No spontaneous respirations on auscultation, no visible chest activity Discharge Data Allergies Allergy/AdvReac Type Severity Reaction Status Date / Time bee venom protein (honey bee) Allergy Severe PASSED Verified 12/01/21 18:16 OUT, STOPPED HEART amoxicillin Allergy Mild Unknown Verified 12/01/21 18:16 Consultations 12/01/21 17:35 ED Decision to Admit Stat 12/10/21 09:37 Consult Pulmonology Routine 12/10/21 09:38 Consult Roof Service Technician Routine Ordered Studies 12/04/21 09:05 CT angio chest PE protocol Stat Hospital Course (1) Pneumonia due to 2019-nCoV: Summary and goals of care: Patient admitted 12/01/2020 for COVID-pneumonia with symptoms that began 11/22, patient completed 10 days of dexamethasone and remdesivir however has had severe pulmonary disease without substantial clinical improvement. Goals of care discussions have been had with patient and family by several care members, following prolonged discussion between patient, , family and Pulmonary decision was made to proceed to DNR/DNI level 5 and comfort measures. had reported that she was praying for a miracle, and that she wanted to try antibiotics such as doxycycline. This was discussed with her that antibiotics do not help viral infections, but her Pro-Ranjeet was checked to look for evidence of underlying superimposed pneumonia; this was normal. Various family members in the area. Patient will not be able to be downgraded from isolation until 12/22/2021 (21 days from initial, 12/01/2020), until that time an exception has been made for the patient's to visit her . Other family members are unable to visit at this time as patient is still under COVID isolation. 12/14: Discussed that he continues to remain severely ill with severe lung damage due to COVID could easily decompensate and passed quickly. Expresses that she understands this, and while she understands he could pass at any moment and would still like him treated for comfort she is still praying for a miracle. She has not thought about what she would do if he neither improved nor decompensated, and continued at his current oxygen requirements/severe pulmonary impairment. Is not sure if she would want to try moving to lower oxygen to support to see if he could return home for hospice goals knowing he might decompensate versus maintaining high flow oxygen at a long-term facility. She reports she has not thought about what she would do if he were to continue in his current state without clinical change, but will think about it. She would not like to make any changes to his oxygen at least until he is off COVID precautions and can see other family. 12/15: Patient seen at bedside. Reports he was okay overnight, is a little short of breath this morning. no questions or concerns at time of bedside visit. Reported that he would like to have the oxymask on or nearby as he is afraid of feeling like he did yesterday when his shortness of breath suddenly worsened. UPdated by phone. Support provided, reviewed with nursing staff. Objectively with signs of respiratory distress (tachypnea, shallow breathing), subjectively doing well on drip. Continue DISPUTE SPECIALIST care, morphine gtt, ativan PRN. He remains critically ill and hypoxic and unstable for transfer/inappropriate for home hospice at this time. 12/16: Patient in no acute distress, does not arouse to exam, tachycardic on morning assessment with slowing respirations on repeat morning assessment. Patient passed at 1033. Family updated. Comfort Measures Only Respiratory failure with hypoxia 2/2 COVID-pneumonia Rapidly worsening 12/04/20 First symptoms: ~11/23/21 First tested: in our system 12/01/21 Unvaccinated Admission date:12/01/21 Admission O2 requirement: on oxymask and high flow nasal cannula. Admission CRP: 9 on admission, down to 2.74 Dexamethasone course started: 12/01/21 Remdesivir started: 12/01/21 Tocilizumab given/baricitinib not started now out of time window Started Lasix 12/03, continue Lasix 40 mg IV every morning Transitioned to comfort measures. (2) Acute respiratory failure with hypoxia: Secondary to COVID-19 as above Aim O2 sats > 90%. Continue to wean high flow as able. CXR negative for pneumothorax CTA negative for pulmonary emboli Procalcitonin negative transitioned to comfort. Pulmonary signed off. (3) Type 2 diabetes mellitus: Patient with well controlled Type II DM, last HgbA1C from 11/17/21 = 6.4. BSG 156-213 yesterday -Hold Glimepiride -Lantus 5u BID with ISS NPH discontinued as dexamethasone completed (4) BPH w urinary obs/LUTS: Chronic. Patient urinating without difficulty -Continue Flomax 0.4mg po daily - Comfort Care (5) Comfort measures only status: - As above. morphine gtt, ativan PRN. Scopalamine and atropine available for end of life secretions, recommend scopalamine early or transition to atropine if late/ineffective. Diet - T2DM Disposition - COVID isolation precautions, DISPUTE SPECIALIST Code Status: DISPUTE SPECIALIST, DNR/DNI see above Total Time Total Time Spent Total Time Spent (In Minutes): Total time spent day of discharge including direct patient care, coordination of care, review of labs and images, documentation, and communication with family and caregivers 60 minutes Discharge Plan Discharge Items Patient Disposition: Discharge Diagnosis: Acute Hypoxic Respiratory Failure 2/2 COVID PNA Addtl Attending Provider Instructions: [facility] [place] Other Date/Time: 12/16/21 10:33 Coding Level of Care Code D/C DAY MANAGEMENT >30 MINS Diagnoses Pneumonia due to 2019-nCoV U07.1; J12.82 Acute respiratory failure with hypoxia J96.01 Type 2 diabetes mellitus E11.9 BPH w urinary obs/LUTS N40.1; N13.8 Comfort measures only status Z51.5
--- NOTE | 2021-12-16 10:42 | Death Pronouncement Note ---
Date of Service December 16, 2021 Pronouncement Note Admission Date Admission Date: December 01, 2021 Date and Time of Date of : 12/16/21 Time of : 10:33 PCOD Preliminary cause of : Respiratory failure with hypoxia Contributing Factors (1) Pneumonia due to 2019-nCoV: (2) Acute respiratory failure with hypoxia: (3) Type 2 diabetes mellitus: (4) BPH w urinary obs/LUTS: (5) Comfort measures only status: Hospital Course Hospital Course: See Summary Summary Additional details: See Seperate Summary. Family would like to use [facility] services in [place], [place]. Additional Data Confirmation of : no pulse, no respirations, no heart sounds and pupils fixed and dilated Family: contacted Attending/PCP notified?: Yes Attending physician: Dion Jeffries MD
== END 2021-12-16 11:26 | disposition expired | DRG 177 ==
LOC: ED 14:45 → SUATTDRO 19:56 → EDINP 19:56 → 2W 12-02 14:50 → 2E 12-04 12:13 → 2S 12-08 00:31 → 3E 12-11 16:18
DX: M54.17 Radiculopathy, lumbosacral region; J12.82 Pneumonia due to coronavirus disease 2019; E55.9 Vitamin D deficiency, unspecified; N40.1 Benign prostatic hyperplasia with lower urinary tract symptoms; Z88.0 Allergy status to penicillin; N13.8 Other obstructive and reflux uropathy; Z66 Do not resuscitate; Z91.030 Bee allergy status; J96.01 Acute respiratory failure with hypoxia; K21.9 Gastro-esophageal reflux disease without esophagitis; Z51.5 Encounter for palliative care; E87.1 Hypo-osmolality and hyponatremia; I10 Essential (primary) hypertension; E11.9 Type 2 diabetes mellitus without complications; U07.1 COVID-19